=== PATIENT | male | born 1965 | race Caucasian/White ===

== ENCOUNTER 2019-05-25 15:49 | Inpatient (IN) | payer MEDICARE, MEDICAID ==
[2019-05-25] MEDS ORDERED: CIPROFLOXACIN 400 MG/200 ML 200 ML IV ONE (17:26)
[2019-05-25] MEDS ORDERED: metroNIDAZOLE 500 MG/100 ML 500 MG/100 ML BAG IV ONE (17:27)
[2019-05-25] MEDS ORDERED: SODIUM CHLORIDE 0.9% 1,000 ML IV ONE (17:28)
[2019-05-25 17:39] LABS: BASOPHILS # (AUTO) 0.1 10^3/uL (0.0-0.1); BASOPHILS % (AUTO) 0.9 %; EOSINOPHILS # (AUTO) 0.2 10^3/uL (0.0-0.7); EOSINOPHILS % (AUTO) 1.5 %; HGB - HEMOGLOBIN 13.6 g/dL (14.0-18.0); LYMPHOCYTES # (AUTO) 1.3 10^3/uL (1.5-3.5); LYMPHOCYTES % (AUTO) 9.6 %; MEAN CORPUSCULAR HEMOGLOBIN 28.3 pg (27.0-31.0); MEAN CORPUSCULAR HGB CONC 33.7 g/dL (32.0-36.0); MEAN CORPUSCULAR VOLUME 83.8 fL (80.0-94.0); MEAN PLATELET VOLUME 8.2 fL (7.4-11.4); MONOCYTES # (AUTO) 0.8 10^3/uL (0.0-1.0); MONOCYTES % (AUTO) 5.8 %; NEUTROPHILS # (AUTO) 10.9 10^3/uL (1.5-6.6); NEUTROPHILS % (AUTO) 81.4 %; PLT - PLATELET COUNT 426 10^3/uL (130-450); RED BLOOD COUNT 4.81 10^6/uL (4.70-6.10); RED CELL DISTRIBUTION WIDTH 13.2 % (12.0-15.0); WHITE BLOOD COUNT 13.4 x10^3/uL (4.8-10.8)
[2019-05-25 17:50] LABS: BUN - BLOOD UREA NITROGEN 14 mg/dL (6-20); CALCIUM 8.2 mg/dL (8.5-10.3); CARBON DIOXIDE - CO2 24 mmol/L (21-32); CHLORIDE 95 mmol/L (101-111); CREATININE 1.3 mg/dL (0.6-1.2); GLUCOSE 164 mg/dL (70-100); SODIUM 130 mmol/L (135-145)
[2019-05-25 17:52] LABS: KETONES, SERUM (ACETEST) NEGATIVE (NEGATIVE)
--- NOTE | 2019-05-25 17:58 | ED Physician Documentation ---
History of Present Illness - Stated complaint Stated Complaint: LT HEEL PX - Chief complaint Chief Complaint: Wound - History obtained from History obtained from: Patient - Additonal information Additional information: There is a 53-year-old man who is insulin-dependent diabetic who presents with complaints that his left heel has had a wound on it for about 3 weeks and then the skin started falling off this week so he decided he should probably have it looked at. He has neuropathy so he has no pain. He denies any fever or nausea. His blood sugars have been running around 220. He is not short of breath or have chest pain. [place] 4 [place]. 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 Review of Systems Constitutional: denies: Fever Cardiac: denies: Chest pain / pressure Respiratory: denies: Dyspnea GI: denies: Nausea, Vomiting : denies: Dysuria Skin: reports: Lesions, Other (Open wound to the left heel.) Neurologic: reports: Numbness. denies: Syncope PD PAST MEDICAL HISTORY - Past Medical History Past Medical History: Yes Cardiovascular: Hypertension Respiratory: None Neuro: None Endocrine/Autoimmune: Type 2 diabetes GI: None : None HEENT: None Psych: None Musculoskeletal: None Derm: None - Past Surgical History Past Surgical History: Yes HEENT: Other - Present Medications Home Medications: Ambulatory Orders Medication Instructions Recorded Confirmed Amlodipine Besylate 10 mg PO DAILY 11/12/13 09/18/14 Dabigatran [Pradaxa] 75 mg PO BID 11/12/13 09/18/14 Insulin Aspart (Vial) [NovoLOG] 10 unit SQ TID 30 Days ml 11/12/13 09/18/14 Insulin Aspart [NovoLOG] 0 unit SQ TIDWM 11/12/13 09/18/14 Insulin Glargine,Hum.rec.anlog 50 unit SQ BID 30 Days ml 11/12/13 09/18/14 [Lantus] Insulin Glargine,Hum.rec.anlog 50 units BID 11/12/13 09/18/14 [Lantus] Lisinopril 20 mg ORAL BID 11/12/13 09/18/14 Metoprolol Tartrate 100 mg PO DAILY 11/12/13 09/18/14 Pregabalin [Lyrica] 50 mg PO TID 11/12/13 09/18/14 Aspirin [Aspir 81] 81 mg ORAL DAILY 09/18/14 09/18/14 Metformin HCl 1,000 mg PO BID 09/18/14 09/18/14 Omeprazole [Prilosec] 20 mg PO DAILY 09/18/14 09/18/14 Oxycodone HCl/Acetaminophen 1 - 2 each PO Q6H PRN #20 tablet 09/18/14 [Percocet 5-325 mg Tablet] hydroCHLOROthiazide [Hydrodiuril] 25 mg PO ONCE 09/18/14 09/18/14 levoFLOXacin [Levofloxacin] 500 mg PO DAILY 09/18/14 09/18/14 - Allergies Allergies/Adverse Reactions: Allergies Allergy/AdvReac Type Severity Reaction Status Date / Time Penicillins Allergy Itching Verified 05/25/19 16:00 - Social History Does the pt smoke?: Yes Smoking Status: Current every day smoker Does the pt drink ETOH?: No Does the pt have substance abuse?: No - Immunizations Immunizations are current?: Yes - POLST Patient has POLST: No PD ED PE NORMAL - Vitals Vital signs reviewed: Yes - General General: Alert and oriented X 3, No acute distress, Well developed/nourished, Other (Obese) - HEENT HEENT: Atraumatic, PERRL, EOMI, Other (No scleral icterus) - Cardiac Cardiac: RRR, No murmur, Strong equal pulses - Respiratory Respiratory: No respiratory distress, Clear bilaterally - Abdomen Abdomen: Normal bowel sounds, Soft - Extremities Extremities: Other (Patient has a right BKA with prosthesis. His left foot is missing 3 toes along the lateral aspect. He has palpable dorsalis pedis pulse. The skin is quite thick of the lower extremity. There is a black eschar covering the entire heel. There is no evident wound bone at the base of the wound. There is a very foul odor. No active drainage. There is erythema surrounding this entire margin of the wound that measures several centimeters in diameter) - Neuro Neuro: Alert and oriented X 3, No motor deficit, Normal speech - Psych Psych: Normal mood, Normal affect Results - Vitals Vitals: Vital Signs - 24 hr 05/25/19 05/25/19 15:55 18:17 Temperature 36.6 C Heart Rate 109 H 102 H Respiratory 16 18 Rate Blood Pressure 126/106 H 106/94 H O2 Saturation 98 96 Oxygen O2 Source Room air - Labs Labs: Microbiology 05/25/19 17:40 Wound Culture - Preliminary Foot - Left Laboratory Tests 05/25/19 05/25/19 05/25/19 17:20 17:20 17:20 WBC 13.4 H RBC 4.81 Hgb 13.6 L Hct 40.3 L MCV 83.8 MCH 28.3 MCHC 33.7 RDW 13.2 Plt Count 426 MPV 8.2 Neut # (Auto) 10.9 H Lymph # (Auto) 1.3 L [place] # (Auto) 0.8 Eos # (Auto) 0.2 Baso # (Auto) 0.1 Absolute Nucleated RBC 0.00 Nucleated RBC % 0.0 Sodium 130 L Potassium 3.7 Chloride 95 L Carbon Dioxide 24 Anion Gap 11.0 BUN 14 Creatinine 1.3 H Estimated GFR (MDRD) 57 L Glucose 164 H Lactic Acid 0.8 Calcium 8.2 L Serum Ketones NEGATIVE - Rads (name of study) L foot Radiology: EMP read contemporaneously (neg bony involvement), See rad report PD MEDICAL DECISION MAKING - ED course Complexity details: reviewed results, d/w patient ED course: White blood cell count is a little elevated. His BUN and creatinine are normal. Serum ketones were negative. He is allergic to penicillin so he was medicated with Cipro and Flagyl. I spoke with the hospitalist and he requested that I add Vanco tonight as well. Cultures in the blood and cultures of the wound anaerobic and aerobic were obtained. Departure - Departure Disposition: ED Place in Observation Clinical Impression: Diabetic foot ulcer Qualifiers: Diabetic foot ulcer location: heel Diabetes mellitus type: type 1 Laterality: right Non-pressure ulcer stage: with other severity Qualified Code(s): E10.621 - Type 1 diabetes mellitus with foot ulcer; L97.418 - Non-pressure chronic ulcer of right heel and midfoot with other specified severity Condition: Good
--- NOTE | 2019-05-25 18:31 | XRAY Report ---
Reason: diabetic foot ulcer; r/o osteomyelitis Procedure Date: 05/25/2019 Accession Number: [id number] / [id number] Procedure: XR - Foot 3 View LT CPT Code: Final Report FULL RESULT: EXAM: LEFT FOOT RADIOGRAPHY EXAM DATE: 05/25/2019 05:53 PM. CLINICAL HISTORY: Diabetic foot ulcer; r/o osteomyelitis. COMPARISON: None. TECHNIQUE: 3 views. FINDINGS: Bones: There are findings of previous amputation of the fourth and fifth metatarsal diaphysis, first distal phalanx and third proximal phalanx. 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 No other focal cortical bone destruction. Joints: No dislocation. Soft Tissues: Normal. No soft tissue swelling. IMPRESSION: 1. Previous amputations of the first, third, fourth, and fifth digits. 2. 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 3. No other destructive bony abnormality. RADIA
[2019-05-25] MEDS ORDERED: VANCOMYCIN INJ 1 GM in SODIUM CHLORIDE 0.9% 500 ML IV STA (18:54)
[2019-05-25] MEDS ORDERED: SODIUM CHLORIDE 0.9% 1,000 ML IV SCH (19:00)
--- NOTE | 2019-05-25 19:07 | HISTORY & PHYSICAL EXAMINATION ---
Chief Complaint - Chief Complaint Chief Complaint: left diabetic foot ulcer History of Present Illness - Admitted From Admitted From:: [facility] ED - History Obtained From Records Reviewed: yes History obtained from: patient - History of Present Illness HPI Comment/Other: Patient is a 53 y/o morbidly obese male with DM II and significant PVD who pres ented to the ED with a left heel diabetic ulcer which is black, mal-odorous and draining. He reports that skin around it has been sloughing off for the past week and it has been draining for the past couple of days. He has a right BKA and left amputation of metatarsal and 3 toes. He is also an active smoker. He thinks the ulcer started as a result of rubbing of his heel in his shoe. He finally decided to get it looked at because of the smell and drainage. He denied any fever or chills. He denied chest pain, dyspnea, abd pain, nausea or vomiting. In the ED he had a WBC of 13. He was mildly tachycardic at 102. Initially his SBP was 106 but then it became elevated at 196. As a result of the above he was presented for admission He just moved back to [facility] with his parents from [place], [place] History - Past Medical History Cardiovascular: reports: Hypertension, Peripheral Vascular Disease Respiratory: reports: None Neuro: reports: None Endocrine/Autoimmune: reports: Type 2 diabetes GI: reports: GERD : reports: None HEENT: reports: None Psych: reports: None Musculoskeletal: reports: None Derm: reports: None MRSA Hx?: No - Past Surgical History HEENT: reports: Other Other past surgical history: right BKA, Left metatarsal and 3 toes amputated - Family & Social History Family History Comment/Other: Patient denied any significant family history Living arrangement: At home Living Situation: With family Social History Notes: He smokes about 1/4 ppd X 30+ years. He denies alcohol or illicit drug use - POLST Patient has POLST: No POLST Status: Full Code Meds/Allgy - Home Medications Home Medications: Ambulatory Orders Medication Instructions Recorded Confirmed Amlodipine Besylate 10 mg PO DAILY 11/12/13 09/18/14 Dabigatran [Pradaxa] 75 mg PO BID 11/12/13 09/18/14 Insulin Aspart (Vial) [NovoLOG] 10 unit SQ TID 30 Days ml 11/12/13 09/18/14 Insulin Aspart [NovoLOG] 0 unit SQ TIDWM 11/12/13 09/18/14 Insulin Glargine,Hum.rec.anlog 50 unit SQ BID 30 Days ml 11/12/13 09/18/14 [Lantus] Insulin Glargine,Hum.rec.anlog 50 units BID 11/12/13 09/18/14 [Lantus] Lisinopril 20 mg ORAL BID 11/12/13 09/18/14 Metoprolol Tartrate 100 mg PO DAILY 11/12/13 09/18/14 Pregabalin [Lyrica] 50 mg PO TID 11/12/13 09/18/14 Aspirin [Aspir 81] 81 mg ORAL DAILY 09/18/14 09/18/14 Metformin HCl 1,000 mg PO BID 09/18/14 09/18/14 Omeprazole [Prilosec] 20 mg PO DAILY 09/18/14 09/18/14 Oxycodone HCl/Acetaminophen 1 - 2 each PO Q6H PRN #20 tablet 09/18/14 [Percocet 5-325 mg Tablet] hydroCHLOROthiazide [Hydrodiuril] 25 mg PO ONCE 09/18/14 09/18/14 levoFLOXacin [Levofloxacin] 500 mg PO DAILY 09/18/14 09/18/14 - Allergies Allergies/Adverse Reactions: Allergies Allergy/AdvReac Type Severity Reaction Status Date / Time Penicillins Allergy Itching Verified 05/25/19 16:00 Review of Systems - Constitutional Constitutional: denies: Fatigue, Fever, Chills, Weakness - Eyes Eyes: denies: Pain, Blurred vision, Vision loss, Dipolpia - Ears, Nose & Throat Ears, Nose & Throat: denies: Ear pain, Tinnitus, Sore throat - Cardiovascular Cariovascular: denies: Irregular heart rate, Chest pain, Lightheadedness, Syncope, Exertional dyspnea - Respiratory Respiratory: denies: Cough, Sputum production, SOB at rest, SOB with exertion - Gastrointestinal Gastrointestinal: reports: Reflux/heartburn. denies: Abdominal pain, Abdominal distention, Constipation, Diarrhea, Nausea, Vomiting, Coffee grounds emesis - Genitourinary Genitourinary: denies: Dysuria, Frequency, Urgency - Musculoskeletal Musculoskeletal: denies: Muscle pain, Back pain, Gout - Integumentary Integumentary: reports: Lesions (left heel ulcer) - Neurological Neurological: denies: General weakness, Focal weakness, Headache - Psychiatric Psychiatric: denies: Depression, Anxiety - Endocrine Endocrine: denies: Polyuria, Polydypsia - Hematologic/Lymphatic Hematologic/Lymphatic: denies: Anemia, Bruising Prior Level of Functionality: He is independent of activities of daily living Exam - Vital Signs Vital Signs: Vital Signs x48h Temp Pulse Resp BP Pulse Ox 05/25/19 18:17 102 H 18 106/94 H 96 05/25/19 15:55 36.6 C 109 H 16 126/106 H 98 - Physical Exam General Appearance: positive: No acute distress, Alert Eyes Bilateral: positive: PERRL, EOMI ENT: positive: ENT inspection nml, No signs of dehydration Neck: positive: No JVD Respiratory: positive: Chest non-tender, No respiratory distress, Breath sounds nml. negative: Wheezes, Rales, Rhonchi Cardiovascular: positive: No murmur, Tachycardia Abdomen: positive: Non-tender, No organomegaly, Nml bowel sounds, No distention. negative: Guarding, Rebound Back: positive: Nml inspection Skin: positive: Other (left heel ulcer. Black, malodorous and draining) Neurologic/Psychiatric: positive: Oriented x3, Mood/affect nml Conclusion/Plan - Problem List (1) Diabetic foot ulcer Conclusion/Plan: Blood and wound cultures taken Patient started on flagyl and cipro Will continue. 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 Metformin held High dose SSI. Accucheck Check HgA1c Qualifiers: Diabetes mellitus type: type 2 Diabetes mellitus complication detail: with foot ulcer (3) Hypertension Conclusion/Plan: Resume metoprolol and amlodipine. Hold HCTZ and lisinipril for now (4) Diabetic neuropathy Conclusion/Plan: On lyrica (5) GERD (gastroesophageal reflux disease) Conclusion/Plan: Protonix ordered - Lab Results Fish Bones: 05/25/19 17:20 05/25/19 17:20 Core Measures - Anticipated LOS I expect patient to be DC'd or transferred within 96 hours.: Yes - DVT/VTE - Prophylaxis VTE/DVT Device ordered at admit?: Yes VTE/DVT Prophylaxis med ordered at admit?: Yes
[2019-05-25] MEDS ORDERED: VANCOMYCIN PER PHARMACY 100 GM in SODIUM CHLORIDE 0.9% 250 ML IV SCH (20:00)
[2019-05-25] MEDS ORDERED: oxyCODONE 5 MG TABLET PO PRN (20:30)
[2019-05-25] MEDS ORDERED: LABETALOL 5 MG/1 ML 20 ML MDV IVP ONE (20:39)
[2019-05-25] MEDS ORDERED: LABETALOL 5 MG/1 ML 20 ML MDV IVP PRN (20:40)
[2019-05-25 21:19] LABS: HB2 TOTAL 13.3 g/dL; HEMOGLOBIN A1C 1.1 g/dL; HEMOGLOBIN A1C % 9.7 % (4.6-6.2)
[2019-05-25] MEDS: DABIGATRAN 75 MG CAPSULE PO SCH (21:23)
[2019-05-25] MEDS: SODIUM CHLORIDE FLUSH 0.9% 10 ML SYRINGE IVP PRN ×2 (21:24→22:57)
[2019-05-25] MEDS: INSULIN ASPART 300 UNIT/3 ML PEN SUBQ SCH (21:28)
[2019-05-25] MEDS: INSULIN GLARGINE 300 UNIT/3 ML PEN SUBQ SCH (21:29)
[2019-05-25] MEDS ORDERED: hydrALAZINE INJ 20 MG/ML VIAL IVP STA (22:29)
[2019-05-25] MEDS ORDERED: hydrALAZINE INJ 20 MG/ML VIAL ONE (22:47)
[2019-05-26] MEDS ORDERED: hydrALAZINE INJ 20 MG/ML VIAL IVP PRN (00:28)
[2019-05-26] MEDS: SODIUM CHLORIDE FLUSH 0.9% 10 ML SYRINGE IVP SCH ×3 (01:01→16:52)
[2019-05-26] MEDS ORDERED: LABETALOL 5 MG/1 ML 20 ML MDV IVP ONE ×2 (01:59→22:27)
[2019-05-26] MEDS ORDERED: SODIUM CHLORIDE 0.9% 500 ML ONE (02:15)
[2019-05-26] MEDS: SODIUM CHLORIDE FLUSH 0.9% 10 ML SYRINGE IVP PRN (02:20)
[2019-05-26] MEDS ORDERED: metroNIDAZOLE 500 MG/100 ML 500 MG/100 ML BAG IV SCH (02:30)
[2019-05-26 05:10] LABS: BASOPHILS # (AUTO) 0.1 10^3/uL (0.0-0.1); BASOPHILS % (AUTO) 0.9 %; EOSINOPHILS # (AUTO) 0.1 10^3/uL (0.0-0.7); EOSINOPHILS % (AUTO) 0.8 %; HGB - HEMOGLOBIN 12.4 g/dL (14.0-18.0); LYMPHOCYTES % (AUTO) 8.3 %; MEAN CORPUSCULAR HEMOGLOBIN 26.6 pg (27.0-31.0); MEAN CORPUSCULAR HGB CONC 31.9 g/dL (32.0-36.0); MEAN CORPUSCULAR VOLUME 83.5 fL (80.0-94.0); MEAN PLATELET VOLUME 8.3 fL (7.4-11.4); MONOCYTES # (AUTO) 0.8 10^3/uL (0.0-1.0); MONOCYTES % (AUTO) 6.5 %; NEUTROPHILS # (AUTO) 9.6 10^3/uL (1.5-6.6); NEUTROPHILS % (AUTO) 82.9 %; PLT - PLATELET COUNT 388 10^3/uL (130-450); RED BLOOD COUNT 4.66 10^6/uL (4.70-6.10); RED CELL DISTRIBUTION WIDTH 13.2 % (12.0-15.0); WHITE BLOOD COUNT 11.5 x10^3/uL (4.8-10.8)
[2019-05-26 05:13] LABS: CALCIUM 8.2 mg/dL (8.5-10.3); CREATININE 1.2 mg/dL (0.6-1.2)
[2019-05-26] MEDS: PANTOPRAZOLE 40 MG TABLET PO SCH (06:45)
[2019-05-26] MEDS ORDERED: VANCOMYCIN INJ 1.5 GM in SODIUM CHLORIDE 0.9% 500 ML IV SCH (07:00)
[2019-05-26] MEDS ORDERED: CIPROFLOXACIN 400 MG/200 ML 200 ML IV SCH (07:00)
[2019-05-26] MEDS: INSULIN ASPART 300 UNIT/3 ML PEN SUBQ SCH ×4 (08:14→21:10)
[2019-05-26] MEDS: DABIGATRAN 75 MG CAPSULE PO SCH (08:15)
[2019-05-26] MEDS: amLODIPine 5 MG TABLET PO SCH (08:15)
[2019-05-26] MEDS: INSULIN GLARGINE 300 UNIT/3 ML PEN SUBQ SCH ×2 (08:19→21:09)
[2019-05-26] MEDS: SODIUM CHLORIDE 0.9% 1,000 ML IV SCH ×2 (08:59→23:46)
[2019-05-26] MEDS ORDERED: DOXYCYCLINE INJ 100 MG in SODIUM CHLORIDE 0.9% MINIBAG 100 ML IV SCH (09:00)
[2019-05-26] MEDS ORDERED: NITROGLYCERIN 0.2 MG/HR PATCH TOP SCH (09:00)
[2019-05-26] MEDS ORDERED: lisinopriL 20 MG TABLET PO SCH (09:00)
[2019-05-26] MEDS: CEFEPIME 2 GM in SODIUM CHLORIDE 0.9% MINIBAG 100 ML IV SCH ×2 (10:25→21:08)
--- NOTE | 2019-05-26 11:49 | PHARMACY PROGRESS NOTE ---
- Best Possible Medication History Admit Date and Time: 05/26/19 1001 Processed by: Pharmacy Medication History completed: In progress (Patient appears to be poor historian, spoke to mother and reviewed medication list; awaiting fax from patient's outpatient provider in [place]; PCP on file- patient has not seen this provider yet (no history per meidcal assitant at office)) As the person ultimately responsible for medication therapy, providers are able to order a medication from an existing home medication list in [facility] via the "Reconcile Routine" prior to Confirmation of that medication by manager client support. Such practice is discouraged except when the physician, in their clinical judgment, deems that a medical need exists for a medication without regard to previous use.
[2019-05-26] MEDS: carvediloL 12.5 MG TABLET PO SCH ×2 (13:27→20:15)
[2019-05-26] MEDS: hydrALAZINE 25 MG TABLET PO SCH ×2 (13:27→21:08)
--- NOTE | 2019-05-26 13:39 | PROVIDER PROGRESS NOTE ---
Assessment/Plan - Problem List (1) Diabetic foot ulcer Qualifiers: Diabetic foot ulcer location: heel Diabetes mellitus type: type 2 Laterality: right Non-pressure ulcer stage: with other severity Qualified C ode(s): E11.621 - Type 2 diabetes mellitus with foot ulcer; L97.418 - Non- pressure chronic ulcer of right heel and midfoot with other specified severity Assessment/Plan: 05/26 pt has black color, mal-odorous and mild draining ulcer at left heel location. wound culture indicate both Gram negative and positive bacteria, sensitive is pending. pt state he is sensitive to Vancomycin and refused to have. add Linezolid, pt has normal platelet. continue Cefepime which cover for Pseudo. and Linezolid for gram positive possible MRSA. pt is uncontrolled DM2 blood culture is pending MRI of foot is pending. Xray of foot did not indicate bony infection (2) uncontrolled Diabetes pt has A1C 9.7. discussed with pt for medical compliance importance, specially for foot ulcer control continue SSI, hypoglycemia protocol (3) uncontrolled Hypertension improved. it is controlled now. continue current meds regimen (4) Diabetic neuropathy Conclusion/Plan: stable, pt has no complaint now. (5) GERD (gastroesophageal reflux disease) stable. continue Protonic PO (6)diarrhea pt report diarrhea is better. order Probiotics, pt is on antibiotics to treat his foot infection C.Diff test is negative, add Imodine PRN - Current Meds Current Meds: Current Medications Generic Name Dose Route Start Last Admin Trade Name Freq PRN Reason Stop Dose Admin Amlodipine Besylate 10 mg 05/26/19 09:00 05/26/19 08:15 Norvasc PO 10 mg DAILY RADHA Administration Carvedilol 12.5 mg 05/26/19 13:00 05/26/19 13:27 Coreg PO 12.5 mg BID RADHA Administration Dabigatran 75 mg 05/25/19 21:00 05/26/19 08:15 Pradaxa PO 75 mg BID RADHA Administration Hydralazine HCl 10 mg 05/26/19 00:28 05/26/19 10:49 Apresoline Inj IVP 10 mg Q4H PRN Administration PER PHYSICIAN ORDER Hydralazine HCl 50 mg 05/26/19 14:00 05/26/19 13:27 Apresoline PO 50 mg TID RADHA Administration Cefepime HCl 2 gm/ Sodium 100 mls @ 200 mls/hr 05/26/19 09:00 05/26/19 10:55 Chloride IV Infused BID RADHA Infusion Sodium Chloride 1,000 mls @ 83.333 mls/hr 05/26/19 09:00 05/26/19 08:59 Normal Saline 0.9% IV 83.333 mls/hr .Q12H RADHA Administration Insulin Aspart 3 - 11 unit 05/25/19 21:00 05/26/19 13:29 Novolog SUBQ 3 unit 0800,1200,1700,2100 RADHA Administration Protocol Insulin Glargine 50 unit 05/25/19 21:00 05/26/19 08:19 Lantus Solostar SUBQ 50 unit BID RADHA Administration Labetalol HCl 10 mg 05/25/19 20:40 05/26/19 01:01 Trandate Inj IVP 10 mg Q4H PRN Administration PER PHYSICIAN ORDER Lisinopril 20 mg 05/26/19 09:00 05/26/19 09:12 Zestril PO 20 mg BID RADHA Administration Pantoprazole Sodium 40 mg 05/26/19 07:00 05/26/19 06:45 Protonix PO 40 mg QDAC RADHA Administration Sodium Chloride 10 ml 05/25/19 18:56 05/26/19 02:20 Normal Saline Flush 0.9% IVP 10 ml PRN PRN Administration NEEDED PER PROVIDER ORDERS Sodium Chloride 10 ml 05/26/19 01:00 05/26/19 08:28 Normal Saline Flush 0.9% IVP Not Given 0100,0900,1700 RADHA - Lab Result Fish Bone Diagrams: 05/26/19 04:40 05/26/19 04:40 - Additional Planning My Orders: My Active Orders 05/26/19 08:20 Wound Care - MAC [RC] .ONCE 05/26/19 09:00 Cefepime 2 gm Sodium Chloride 0.9% Minibag [Normal Saline 0.9% Minibag] 100 ml IV BID Sodium Chloride 0.9% [Normal Saline 0.9%] 1,000 ml IV 83.333 mls/hr lisinopriL [Zestril] 20 mg PO BID 05/26/19 13:00 carvediloL [Coreg] 12.5 mg PO BID 05/26/19 14:00 Linezolid/D5W 600 mg/300 mL q12h Linezolid 600 mg/300 ml [Zyvox 600 mg/300 ml] 600 mg in 300 ml IV Q12H hydrALAZINE [Apresoline] 50 mg PO TID 05/26/19 17:00 Saccharomyces Boulardii [Florastor] 500 mg PO BIDWM Subjective - Subjective Patient Reports: Feeling Better Objective Vital Signs: Vital Signs - 24 hr 05/25/19 05/25/19 05/25/19 15:55 18:17 20:08 Temperature 36.6 C 37.2 C Heart Rate 109 H 102 H Heart Rate [ 100 Brachial] Heart Rate [ Radial] Respiratory 16 18 24 Rate Blood Pressure 126/106 H 106/94 H Blood Pressure 192/92 H [Left Brachial artery] Blood Pressure [Left Radial artery] Blood Pressure [Right Brachial artery] O2 Saturation 98 96 98 05/25/19 05/25/19 05/25/19 20:39 21:00 21:30 Temperature 37.2 C 37.2 C Heart Rate Heart Rate [ 99 Brachial] Heart Rate [ 97 Radial] Respiratory 22 Rate Blood Pressure Blood Pressure 196/85 H [Left Brachial artery] Blood Pressure 199/95 H [Left Radial artery] Blood Pressure [Right Brachial artery] O2 Saturation 95 05/25/19 05/25/19 05/25/19 21:35 21:39 21:56 Temperature Heart Rate Heart Rate [ 90 90 Brachial] Heart Rate [ 89 Radial] Respiratory Rate Blood Pressure Blood Pressure 184/86 H 170/90 H [Left Brachial artery] Blood Pressure 185/78 H [Left Radial artery] Blood Pressure [Right Brachial artery] O2 Saturation 05/25/19 05/25/19 05/25/19 22:00 22:17 22:55 Temperature Heart Rate Heart Rate [ 90 90 Brachial] Heart Rate [ Radial] Respiratory Rate Blood Pressure 163/66 H Blood Pressure 193/89 H 197/84 H [Left Brachial artery] Blood Pressure [Left Radial artery] Blood Pressure [Right Brachial artery] O2 Saturation 05/25/19 05/25/19 05/25/19 22:58 23:03 23:08 Temperature Heart Rate Heart Rate [ 93 94 95 Brachial] Heart Rate [ Radial] Respiratory Rate Blood Pressure Blood Pressure 163/66 H 130/44 L 155/72 H [Left Brachial artery] Blood Pressure [Left Radial artery] Blood Pressure [Right Brachial artery] O2 Saturation 05/25/19 05/25/19 05/25/19 23:11 23:15 23:45 Temperature Heart Rate Heart Rate [ 95 Brachial] Heart Rate [ Radial] Respiratory Rate Blood Pressure Blood Pressure 161/77 H [Left Brachial artery] Blood Pressure 155/73 H 164/77 H [Left Radial artery] Blood Pressure [Right Brachial artery] O2 Saturation 05/26/19 05/26/19 05/26/19 00:05 00:55 01:05 Temperature 37.0 C Heart Rate Heart Rate [ Brachial] Heart Rate [ 97 98 98 Radial] Respiratory 20 20 Rate Blood Pressure Blood Pressure 172/64 H [Left Brachial artery] Blood Pressure 177/75 H 183/81 H [Left Radial artery] Blood Pressure [Right Brachial artery] O2 Saturation 95 05/26/19 05/26/19 05/26/19 01:16 01:21 01:33 Temperature Heart Rate Heart Rate [ Brachial] Heart Rate [ 98 96 98 Radial] Respiratory 20 Rate Blood Pressure Blood Pressure [Left Brachial artery] Blood Pressure 174/79 H 174/71 H 179/84 H [Left Radial artery] Blood Pressure [Right Brachial artery] O2 Saturation 05/26/19 05/26/19 05/26/19 01:47 02:20 02:25 Temperature Heart Rate Heart Rate [ 100 Brachial] Heart Rate [ 100 102 H Radial] Respiratory Rate Blood Pressure Blood Pressure [Left Brachial artery] Blood Pressure 186/82 H 174/77 H 171/73 H [Left Radial artery] Blood Pressure [Right Brachial artery] O2 Saturation 05/26/19 05/26/19 05/26/19 02:30 02:36 02:48 Temperature Heart Rate Heart Rate [ 98 Brachial] Heart Rate [ 101 H 102 H Radial] Respiratory Rate Blood Pressure Blood Pressure [Left Brachial artery] Blood Pressure 171/74 H 175/74 H 163/79 H [Left Radial artery] Blood Pressure [Right Brachial artery] O2 Saturation 05/26/19 05/26/19 05/26/19 03:03 03:20 04:38 Temperature 37.4 C Heart Rate Heart Rate [ 104 H Brachial] Heart Rate [ Radial] Respiratory 18 Rate Blood Pressure Blood Pressure [Left Brachial artery] Blood Pressure 164/71 H 162/73 H [Left Radial artery] Blood Pressure [Right Brachial artery] O2 Saturation 95 0205/26/19 05/26/19 06:45 08:07 10:36 Temperature 3702 C H Heart Rate Heart Rate [ Brachial] Heart Rate [ 101 H 98 Radial] Respiratory 30 H Rate Blood Pressure Blood Pressure [Left Brachial artery] Blood Pressure 156/72 H 177/83 H 192/88 H [Left Radial artery] Blood Pressure [Right Brachial artery] O2 Saturation 95 05/26/19 05/26/19 05/26/19 10:45 11:00 11:19 Temperature Heart Rate Heart Rate [ Brachial] Heart Rate [ 103 H 102 H Radial] Respiratory Rate Blood Pressure 170/86 H Blood Pressure 163/116 H [Left Brachial artery] Blood Pressure 170/86 H [Left Radial artery] Blood Pressure [Right Brachial artery] O2 Saturation 05/26/19 05/26/19 05/26/19 11:30 11:45 12:00 Temperature 37.6 C H Heart Rate Heart Rate [ Brachial] Heart Rate [ 106 H Radial] Respiratory 22 Rate Blood Pressure Blood Pressure [Left Brachial artery] Blood Pressure 190/89 H [Left Radial artery] Blood Pressure 176/62 H 144/71 H [Right Brachial artery] O2 Saturation 94 05/26/19 12:19 Temperature Heart Rate Heart Rate [ Brachial] Heart Rate [ Radial] Respiratory Rate Blood Pressure Blood Pressure [Left Brachial artery] Blood Pressure [Left Radial artery] Blood Pressure 134/88 H [Right Brachial artery] O2 Saturation Oxygen O2 Source Room air I&O (Last 24 Hrs): Intake and Output Totals x24h 05/24/19 05/25/19 05/26/19 23:59 23:59 23:59 Intake Total 1300 960 Output Total 1275 Balance 1300 -315 General: Alert, Oriented x3, No acute distress HEENT: Atraumatic Neck: Supple Lymphatic: no adenopathy Neuro: Alert, Non Focal, Oriented Times 3 Cardiovascular: Regular rate, Normal S1, Normal S2 Respiratory: Chest non-tender, No respiratory distress, Breath sounds nml Abdomen: Normal bowel sounds, Soft Extremities: No edema - Results Results: Laboratory Results WBC 11.5 x10^3/uL (4.8-10.8) H 05/26/19 04:40 RBC 4.66 10^6/uL (4.70-6.10) L 05/26/19 04:40 Hgb 12.4 g/dL (14.0-18.0) L 05/26/19 04:40 Hct 38.9 % (42.0-52.0) L 05/26/19 04:40 MCV 83.5 fL (80.0-94.0) 05/26/19 04:40 MCH 26.6 pg (27.0-31.0) L 05/26/19 04:40 MCHC 31.9 g/dL (32.0-36.0) L 05/26/19 04:40 RDW 13.2 % (12.0-15.0) 05/26/19 04:40 Plt Count 388 10^3/uL (130-450) 05/26/19 04:40 MPV 8.3 fL (7.4-11.4) 05/26/19 04:40 Neut # (Auto) 9.6 10^3/uL (1.5-6.6) H 05/26/19 04:40 Lymph # (Auto) 1.0 10^3/uL (1.5-3.5) L 05/26/19 04:40 [place] # (Auto) 0.8 10^3/uL (0.0-1.0) 05/26/19 04:40 Eos # (Auto) 0.1 10^3/uL (0.0-0.7) 05/26/19 04:40 Baso # (Auto) 0.1 10^3/uL (0.0-0.1) 05/26/19 04:40 Absolute Nucleated RBC 0.00 x10^3/uL 05/26/19 04:40 Nucleated RBC % 0.0 /100WBC 05/26/19 04:40 Sodium 133 mmol/L (135-145) L 05/26/19 04:40 Potassium 3.5 mmol/L (3.5-5.0) 05/26/19 04:40 Chloride 101 mmol/L (101-111) 05/26/19 04:40 Carbon Dioxide 22 mmol/L (21-32) 05/26/19 04:40 Anion Gap 10.0 (6-13) 05/26/19 04:40 BUN 14 mg/dL (6-20) 05/26/19 04:40 Creatinine 1.2 mg/dL (0.6-1.2) 05/26/19 04:40 Estimated GFR (MDRD) 63 (>89) L 05/26/19 04:40 Glucose 185 mg/dL (70-100) H 05/26/19 04:40 POC Whole Bld Glucose 153 mg/dL (70 - 100) H 05/26/19 11:25 Glycated Hemoglobin 9.7 % (4.6-6.2) H 05/25/19 17:20 Estim Average Glucose 232 (70-100) H 05/25/19 17:20 Lactic Acid 0.8 mmol/L (0.5-2.2) 05/25/19 17:20 Calcium 8.2 mg/dL (8.5-10.3) L 05/26/19 04:40 Stl C. diff Tox B Gene NEGATIVE (NEGATIVE) 05/26/19 08:20 Serum Ketones NEGATIVE (NEGATIVE) 05/25/19 17:20 ABX Reporting Has patient been on IV antibiotics over the past 48 hours?: Yes Current Medications - Current Medications Current Medications: Active Medications Acetaminophen (Tylenol) 650 mg PO Q6HR PRN PRN Reason: Pain or Fever > 38C (100.4F) Amlodipine Besylate (Norvasc) 10 mg PO DAILY [facility] Last Admin: 05/26/19 08:15 Dose: 10 mg Aspirin (Ecotrin) 81 mg PO DAILY [facility] Carvedilol (Coreg) 12.5 mg PO BID [facility] Last Admin: 05/26/19 13:27 Dose: 12.5 mg Enoxaparin Sodium (Lovenox) 40 mg SUBQ DAILY [facility] Hydralazine HCl (Apresoline Inj) 10 mg IVP Q4H PRN PRN Reason: PER PHYSICIAN ORDER Last Admin: 05/26/19 10:49 Dose: 10 mg Hydralazine HCl (Apresoline) 50 mg PO TID [facility] Last Admin: 05/26/19 13:27 Dose: 50 mg Cefepime HCl 2 gm/ Sodium (Chloride) 100 mls @ 200 mls/hr IV BID [facility] Last Infusion: 05/26/19 10:55 Dose: Infused Sodium Chloride (Normal Saline 0.9%) 1,000 mls @ 83.333 mls/hr IV .Q12H [facility] Last Admin: 05/26/19 08:59 Dose: 83.333 mls/hr Linezolid (Zyvox 600 Mg/300 Ml) 600 mg in 300 mls @ 300 mls/hr IV Q12H [facility] Insulin Aspart (Novolog) 3 - 11 unit SUBQ 0800,1200,1700,2100 [facility]; Protocol Last Admin: 05/26/19 13:29 Dose: 3 unit Insulin Glargine (Lantus Solostar) 50 unit SUBQ BID [facility] Last Admin: 05/26/19 08:19 Dose: 50 unit Labetalol HCl (Trandate Inj) 10 mg IVP Q4H PRN PRN Reason: PER PHYSICIAN ORDER Last Admin: 05/26/19 01:01 Dose: 10 mg Lisinopril (Zestril) 20 mg PO BID [facility] Last Admin: 05/26/19 09:12 Dose: 20 mg Loperamide HCl (Imodium) 2 mg PO QID PRN PRN Reason: Diarrhea Oxycodone HCl (Roxicodone) 5 mg PO Q4HR PRN PRN Reason: PAIN Pantoprazole Sodium (Protonix) 40 mg PO QDAC [facility] Last Admin: 05/26/19 06:45 Dose: 40 mg Saccharomyces Boulardii (Florastor) 500 mg PO BIDWM [facility] Sodium Chloride (Normal Saline Flush 0.9%) 10 ml IVP PRN PRN PRN Reason: NEEDED PER PROVIDER ORDERS Last Admin: 05/26/19 02:20 Dose: 10 ml Sodium Chloride (Normal Saline Flush 0.9%) 10 ml IVP 0100,0900,1700 [facility] Last Admin: 05/26/19 08:28 Dose: Not Given Amlodipine Besylate 10 mg PO DAILY 11/12/13 Insulin Aspart [NovoLOG] 0 unit SQ TIDWM 11/12/13 Insulin Glargine,Hum.rec.anlog [Lantus] 50 units BID 11/12/13 Lisinopril 20 mg ORAL BID 11/12/13 Aspirin [Aspir 81] 81 mg ORAL DAILY 09/18/14 hydroCHLOROthiazide [Hydrodiuril] 25 mg PO DAILY 09/18/14 levoFLOXacin [Levofloxacin] 500 mg PO DAILY 09/18/14 Carvedilol 12.5 mg PO BID 05/26/19 Hydralazine HCl 50 mg PO TID 05/26/19
[2019-05-26] MEDS ORDERED: LOPERAMIDE 2 MG CAPSULE PO PRN (14:01)
[2019-05-26] MEDS: LINEZOLID 600 MG/300 ML 600 MG/300 ML BAG IV SCH (14:47)
[2019-05-26] MEDS ORDERED: GADOBUTROL 15 MMOL/15 ML VIAL ONE (15:32)
[2019-05-26] MEDS ORDERED: GADOBUTROL 15 MMOL/15 ML VIAL IVP ONE (16:12)
[2019-05-26] MEDS: SACCHAROMYCES BOULARDII 250 MG CAPSULE PO SCH (16:50)
[2019-05-26] MEDS: ACETAMINOPHEN 325 MG TABLET PO PRN ×2 (16:52→22:15)
--- NOTE | 2019-05-26 17:19 | MRI Report ---
Reason: diabetic foot ulcer. Assess for osteo Procedure Date: 05/26/2019 Accession Number: [id number] / [id number] Procedure: MRI - Foot LT W/WO CPT Code: Final Report FULL RESULT: EXAM: LEFT ANKLE/HINDFOOT MRI WITHOUT AND WITH CONTRAST EXAM DATE: 05/26/2019 04:59 PM. CLINICAL HISTORY: Diabetic foot ulcer. Assess for osteomyelitis. COMPARISON: FOOT 3 VIEW LT 05/25/2019 5:53 PM. TECHNIQUE: Multiplanar, multisequence T1-weighted and fluid-sensitive sequences of the ankle before and after administration of intravenous contrast. IV contrast: 14 mL Gadavist given IV, no reaction. Other: None. FINDINGS: Bones: The posterior half of the calcaneus shows low signal on T1, high signal on T2 and abnormal contrast enhancement. This portion of the calcaneus is immediately deep to a large ulceration and region of tissue loss involving the skin and subcutaneous soft tissues over the posterior ankle. This defect is about 5.4 x 5.6 cm transversely. There is also some subchondral cystic changes and arthritic changes at the first TMT joint. Series 120 on image 16 for example. This is more degenerative in appearance. Articular Cartilage: Unremarkable. Ligaments: The anterior and posterior tibiofibular, anterior and posterior talofibular, and calcaneofibular ligaments are intact.The deep and superficial deltoid and spring ligaments are intact. Anterior Tendons: The tibialis anterior, extensor hallucis longus, and extensor digitorum longus tendons are unremarkable. Medial Tendons: The tibialis posterior, flexor digitorum longus, and flexor hallucis longus tendons are unremarkable. Lateral Tendons: The peroneus brevis and longus are unremarkable. Achilles Tendon: Achilles tendon is somewhat thickened but intact. Musculature: Some fatty atrophy of the intrinsic muscles of the foot. With contrast there was also low level enhancement present. Other: No effusions or synovitis. The contents of the sinus tarsi and tarsal tunnel are unremarkable.No plantar fasciitis. Subcutaneous edema and swelling is seen around the foot. IMPRESSION: 1. The dominant feature of this examination is a broad region of osteomyelitis involving the calcaneus which is deep to a fairly large ulceration over the posterior aspect of the heel. No drainable fluid collections or abscesses. 2. Some surrounding cellulitis/edema also seen in the subcutaneous soft tissues of the hindfoot. Edema and low level enhancement is seen in the intrinsic musculature of the midfoot and hindfoot, moderate myositis also is present. RADIA
[2019-05-26] MEDS ORDERED: traZODone 50 MG TABLET PO PRN (18:20)
[2019-05-26] MEDS: CLINDAMYCIN 900 MG/50 ML 50 ML IV SCH (18:45)
[2019-05-26] MEDS: LOPERAMIDE 2 MG CAPSULE PO SCH (20:15)
[2019-05-26] MEDS: FERROUS SULFATE 325 MG TABLET PO SCH (21:08)
[2019-05-26] MEDS ORDERED: IOVERSOL 320 100 ML VIAL IVP ONE (23:29)
[2019-05-27] MEDS: SODIUM CHLORIDE FLUSH 0.9% 10 ML SYRINGE IVP SCH ×3 (01:12→16:56)
[2019-05-27] MEDS ORDERED: IOVERSOL 320 100 ML VIAL IVP ONE (01:52)
--- NOTE | 2019-05-27 02:28 | CT Report ---
Reason: dyspnea, tachycardia Procedure Date: 05/27/2019 Accession Number: [id number] / [id number] Procedure: CT - ANGIO CHEST W/WO CPT Code: Final Report FULL RESULT: EXAM: CT ANGIOGRAM CHEST EXAM DATE: 05/27/2019 01:54 AM. CLINICAL HISTORY: Dyspnea, tachycardia. COMPARISON: None. TECHNIQUE: Routine helical imaging was performed through the chest in the pulmonary arterial phase. IV Contrast: OPTIRAY 320. Reconstructions: Coronal 3-D MIP reconstructions. Sagittal and coronal. In accordance with CT protocol optimization, one or more of the following dose reduction techniques were utilized for this exam: automated exposure control, adjustment of mA and/or KV based on patient size, or use of iterative reconstructive technique. FINDINGS: Pulmonary Arteries: Diagnostic quality: Suboptimal through the segmental arteries due to motion artifact. No evidence for acute or chronic pulmonary emboli. Lungs/Pleura: Possible pulmonary vascular congestion versus hypoventilatory changes. No jonh alveolar consolidation seen. No pleural effusion. No pneumothorax. Mediastinum: Heart size upper normal. Thoracic Aorta: Unremarkable. Upper Abdomen: Hepatomegaly with possible fatty liver. Mild splenomegaly. Right renal cyst measuring 2.5 cm. Other: None. IMPRESSION: 1. No pulmonary emboli seen. Images are somewhat degraded due to motion artifact. 2. Possible pulmonary vascular congestion versus atelectatic changes. 3. Heart size upper normal. 4. Hepatosplenomegaly with possible fatty liver. RADIA
[2019-05-27] MEDS: LINEZOLID 600 MG/300 ML 600 MG/300 ML BAG IV SCH (02:29)
[2019-05-27] MEDS: CLINDAMYCIN 900 MG/50 ML 50 ML IV SCH ×2 (02:29→14:48)
[2019-05-27] MEDS ORDERED: SODIUM CHLORIDE 0.9% 500 ML ONE (02:40)
[2019-05-27 03:08] LABS: BASOPHILS # (AUTO) 0.1 10^3/uL (0.0-0.1); BASOPHILS % (AUTO) 0.7 %; EOSINOPHILS % (AUTO) 0.1 %; HGB - HEMOGLOBIN 11.3 g/dL (14.0-18.0); LYMPHOCYTES # (AUTO) 0.5 10^3/uL (1.5-3.5); LYMPHOCYTES % (AUTO) 3.6 %; MEAN CORPUSCULAR HEMOGLOBIN 27.6 pg (27.0-31.0); MEAN CORPUSCULAR HGB CONC 32.9 g/dL (32.0-36.0); MEAN CORPUSCULAR VOLUME 83.7 fL (80.0-94.0); MEAN PLATELET VOLUME 8.3 fL (7.4-11.4); MONOCYTES # (AUTO) 0.5 10^3/uL (0.0-1.0); MONOCYTES % (AUTO) 3.1 %; NEUTROPHILS # (AUTO) 13.7 10^3/uL (1.5-6.6); NEUTROPHILS % (AUTO) 91.6 %; PLT - PLATELET COUNT 296 10^3/uL (130-450); RED CELL DISTRIBUTION WIDTH 13.2 % (12.0-15.0)
[2019-05-27 03:17] LABS: CREATININE 1.4 mg/dL (0.6-1.2)
[2019-05-27] MEDS ORDERED: LEVOTHYROXINE 112 MCG TABLET PO SCH (07:00)
[2019-05-27] MEDS ORDERED: LEVOTHYROXINE 25 MCG TABLET PO SCH (07:00)
[2019-05-27] MEDS: PANTOPRAZOLE 40 MG TABLET PO SCH (07:08)
[2019-05-27] MEDS: hydrALAZINE 25 MG TABLET PO SCH ×2 (07:08→14:48)
[2019-05-27] MEDS: FERROUS SULFATE 325 MG TABLET PO SCH (07:09)
[2019-05-27] MEDS: INSULIN ASPART 300 UNIT/3 ML PEN SUBQ SCH ×3 (07:48→16:56)
[2019-05-27] MEDS ORDERED: ASPIRIN 325 MG TABLET PO SCH (07:49)
--- NOTE | 2019-05-27 08:24 | XRAY Report ---
Reason: SOB Procedure Date: 05/27/2019 Accession Number: [id number] / [id number] Procedure: XR - Chest 1 View X-Ray CPT Code: 28768 Final Report FULL RESULT: EXAM: CHEST RADIOGRAPHY EXAM DATE: 05/27/2019 08:12 AM. CLINICAL HISTORY: Shortness of breath COMPARISON: CHEST ANGIO 05/27/2019 1:36 AM. TECHNIQUE: 1 view. FINDINGS: Lungs/Pleura: No focal opacities are evident. No pleural effusion or pneumothorax. Mediastinum: Within exam limitations, the cardiomediastinal contour is normal. Other: The bones are unremarkable. IMPRESSION: No acute cardiopulmonary abnormality. [facility]
[2019-05-27] MEDS: SACCHAROMYCES BOULARDII 250 MG CAPSULE PO SCH ×2 (08:51→16:55)
[2019-05-27] MEDS: LOPERAMIDE 2 MG CAPSULE PO SCH (08:51)
[2019-05-27] MEDS: carvediloL 12.5 MG TABLET PO SCH (08:52)
[2019-05-27] MEDS: amLODIPine 5 MG TABLET PO SCH (08:52)
[2019-05-27] MEDS: CEFEPIME 2 GM in SODIUM CHLORIDE 0.9% MINIBAG 100 ML IV SCH (08:53)
[2019-05-27] MEDS: SODIUM CHLORIDE 0.9% 1,000 ML IV SCH (08:54)
[2019-05-27] MEDS ORDERED: ENOXAPARIN 40 MG/0.4 ML SYRINGE SUBQ SCH (09:00)
[2019-05-27] MEDS ORDERED: MULTIVITAMIN TABLET PO SCH (09:00)
[2019-05-27] MEDS ORDERED: ASPIRIN EC 81 MG TABLET PO SCH (09:00)
[2019-05-27] MEDS ORDERED: LOSARTAN 50 MG TABLET PO SCH (09:00)
[2019-05-27] MEDS ORDERED: NON FORMULARY MED (Levothyroxine Sodium [Levothyroxine Sodium] 137 MCG) PO SCH (09:00)
[2019-05-27] MEDS ORDERED: FOLIC ACID 0.4 MG PO SCH (09:00)
[2019-05-27] MEDS: INSULIN GLARGINE 300 UNIT/3 ML PEN SUBQ SCH (09:18)
--- NOTE | 2019-05-27 09:23 | PROVIDER PROGRESS NOTE ---
Subjective - Prog Note Date Prog Note Date: 05/27/19 - Subjective Pt reports feeling: Improved Subjective: pt denies chest pain, fever, chill, SOB. Nurse report he has some nausea at this morning. In the last night, per night physician report he had difficult for breath. Also on last night, pt has lower degree of fever, and blood culture was done for pt. pt has elevated troponin at 80, then next troponin at 100 at early this morning, now the new Troponin is over 2400. EKG is done at this morning which reveals no ST variation. but pt complain of nausea at this morning, and difficult to breath on last night. CTA did not reveals PE or infiltrate. Pt likely had acute NSTEM CO on last night. After discussed with Dr. Faby Phillips, publication designer, we start heparin drip for pt now. We start Lipitor, order ECHO. pt already has Coreg. we will continue to control her BP, continue serial Troponin level, continue Tele, vital monitor closely, continue antibiotics for his foot ulcer infection. we will hold pt's transfer to other high level of care. pt had osteomylitis infection on his left foot and pt want to have surgery intervention. Unfortunately we did not have orthopedics surgeon now. Current Medications - Current Medications Current Medications: Active Medications Acetaminophen (Tylenol) 650 mg PO Q6HR PRN PRN Reason: Pain or Fever > 38C (100.4F) Last Admin: 05/26/19 22:15 Dose: 650 mg Amlodipine Besylate (Norvasc) 10 mg PO DAILY [facility] Last Admin: 05/27/19 08:52 Dose: 10 mg Aspirin (Ecotrin) 81 mg PO DAILY [facility] Last Admin: 05/27/19 08:35 Dose: Not Given Atorvastatin Calcium (Lipitor) 80 mg PO QPM [facility] Last Admin: 05/27/19 10:11 Dose: 80 mg Carvedilol (Coreg) 12.5 mg PO BID [facility] Last Admin: 05/27/19 08:52 Dose: 12.5 mg Ferrous Sulfate (Feosol) 325 mg PO BIDWM [facility] Heparin Sodium (Porcine) () 3,850 unit 25 unit/kg (3850 unit) IVP Q6H PRN PRN Reason: ANTI-XA < 0.2 Hydralazine HCl (Apresoline Inj) 10 mg IVP Q4H PRN PRN Reason: PER PHYSICIAN ORDER Last Admin: 05/26/19 10:49 Dose: 10 mg Hydralazine HCl (Apresoline) 50 mg PO TID [facility] Last Admin: 05/27/19 07:08 Dose: 50 mg Cefepime HCl 2 gm/ Sodium (Chloride) 100 mls @ 200 mls/hr IV BID [facility] Last Infusion: 05/27/19 09:23 Dose: Infused Sodium Chloride (Normal Saline 0.9%) 1,000 mls @ 83.333 mls/hr IV .Q12H [facility] Last Admin: 05/27/19 08:54 Dose: 83.333 mls/hr Clindamycin Phosphate (Cleocin 900 Mg/50 Ml) 50 mls @ 50 mls/hr IV Q8H [facility] Last Infusion: 05/27/19 04:00 Dose: Infused Heparin Sodium/Dextrose () 25,000 unit in 500 mls @ 36.84 mls/hr IV .[id number] [facility]; Protocol Last Admin: 05/27/19 10:11 Dose: 12 unit/kg/hr, 36.84 mls/hr Linezolid (Zyvox 600 Mg/300 Ml) 600 mg in 300 mls @ 300 mls/hr IV BID [facility] Insulin Aspart (Novolog) 3 - 11 unit SUBQ 0800,1200,1700,2100 [facility]; Protocol Last Admin: 05/27/19 07:48 Dose: Not Given Insulin Glargine (Lantus Solostar) 50 unit SUBQ BID [facility] Last Admin: 05/27/19 09:18 Dose: 50 unit Labetalol HCl (Trandate Inj) 10 mg IVP Q4H PRN PRN Reason: PER PHYSICIAN ORDER Last Admin: 05/26/19 01:01 Dose: 10 mg Levothyroxine Sodium (Synthroid) 112 mcg PO QDAC [facility] Last Admin: 05/27/19 07:10 Dose: 112 mcg Levothyroxine Sodium (Synthroid) 25 mcg PO QDAC [facility] Last Admin: 05/27/19 07:07 Dose: 25 mcg Loperamide HCl (Imodium) 4 mg PO BID [facility] Last Admin: 05/27/19 08:51 Dose: 4 mg Losartan Potassium (Cozaar) 50 mg PO DAILY [facility] Last Admin: 05/27/19 08:52 Dose: 50 mg Multivitamins (Theragran) 1 tab PO DAILY [facility] Last Admin: 05/27/19 08:52 Dose: 1 tab Oxycodone HCl (Roxicodone) 5 mg PO Q4HR PRN PRN Reason: PAIN Pantoprazole Sodium (Protonix) 40 mg PO QDAC [facility] Last Admin: 05/27/19 07:08 Dose: 40 mg Patient Own Med ( Folic Acid [Folic Acid] 0.4 Mg) 1 each PO DAILY [facility] Last Admin: 05/27/19 08:53 Dose: Not Given Saccharomyces Boulardii (Florastor) 500 mg PO BIDWM [facility] Last Admin: 05/27/19 08:51 Dose: 500 mg Sodium Chloride (Normal Saline Flush 0.9%) 10 ml IVP PRN PRN PRN Reason: NEEDED PER PROVIDER ORDERS Last Admin: 05/26/19 02:20 Dose: 10 ml Sodium Chloride (Normal Saline Flush 0.9%) 10 ml IVP 0100,0900,1700 [facility] Last Admin: 05/27/19 08:54 Dose: 10 ml Trazodone HCl (Desyrel) 50 mg PO QPM PRN PRN Reason: Insomnia Last Admin: 05/26/19 21:08 Dose: 50 mg Amlodipine Besylate 10 mg PO DAILY 11/12/13 Aspirin [Aspir 81] 81 mg ORAL DAILY 09/18/14 hydroCHLOROthiazide [Hydrodiuril] 25 mg PO DAILY 09/18/14 Carvedilol 12.5 mg PO BID 05/26/19 Ferrous Sulfate 325 mg PO TID 05/26/19 Folic Acid 0.4 mg PO DAILY 05/26/19 Hydralazine HCl 100 mg PO TID 05/26/19 Insulin Regular, Human [Humulin R U-500] 100 units SUBQ BID 05/26/19 Levothyroxine Sodium 137 mcg PO DAILY 05/26/19 Loperamide [Imodium] 4 mg PO BID 05/26/19 Losartan [Cozaar] 50 mg PO DAILY 05/26/19 Multivitamin [Theragran] 1 tab PO DAILY 05/26/19 Trazodone HCl 50 mg PO QPM PRN 05/26/19 cloNIDine 0.1 MG PATCH [[id number]-Amr-2] 0.1 mg TOP Q7D 05/26/19 Objective - Vital Signs/Intake & Output Vital Signs: Vital Signs x48h Temp Pulse Pulse Resp BP BP Pulse Ox 05/27/19 08:03 36.9 C 86 18 127/59 L 95 05/27/19 05:00 36.8 C 85 18 122/73 95 05/27/19 02:17 37.3 C 82 20 132/64 H 92 Intake & Output: Intake & Output 05/24/19 05/25/19 05/26/19 05/27/19 23:59 23:59 23:59 23:59 Intake Total 1300 2500.000 1340.000 Output Total 1770 100 Balance 1300 678.960 4617.000 - Objective General Appearance: positive: No acute distress, Alert. negative: Lethargic Eyes Bilateral: positive: Normal inspection, PERRL, EOMI, No lid inflammation ENT: positive: ENT inspection nml, Pharynx nml, No signs of dehydration. negative: Purulent nasal drainage Neck: positive: Nml inspection, Thyroid nml, No JVD, Trachea midline. negative: Thyromegaly, Lymphadenopathy (R), Lymphadenopathy (L), Stiff neck, Tracheal deviation Respiratory: positive: Chest non-tender, No respiratory distress. negative: Wheezes, Rales, Rhonchi Cardiovascular: positive: Regular rate & rhythm, No murmur, No gallop. negative: Irregularly irregular, Extrasystoles, Tachycardia, Bradycardia, JVD present, Systolic murmur, Diastolic murmur Peripheral Pulses: 2+ Radial (R), 2+ Radial (L) Abdomen: positive: Non-tender, No organomegaly, Nml bowel sounds, No distention. negative: Tenderness, Guarding, Rebound Back: positive: Nml inspection. negative: CVA tenderness (R), CVA tenderness (L) Skin: positive: Color nml, No rash, Warm, Dry, Laceration (cm). negative: Cyanosis, Diaphoresis, Pallor Extremities: negative: Calf tenderness, Martin's sign/cords Neurologic/Psychiatric: positive: Oriented x3, Motor nml, Mood/affect nml. negative: Weakness, Sensory loss, Facial droop, Slurred/abnml speech, Depressed mood/affect - Lab Results Fish Bones: 05/27/19 09:27 05/27/19 02:55 Other Labs: Lab Results x24hrs 05/27/19 05/27/19 05/27/19 Range/Units 08:28 07:38 02:55 WBC (4.8-10.8) x10^3/uL RBC (4.70-6.10) 10^6/uL Hgb (14.0-18.0) g/dL Hct (42.0-52.0) % MCV (80.0-94.0) fL MCH (27.0-31.0) pg MCHC (32.0-36.0) g/dL RDW (12.0-15.0) % Plt Count (130-450) 10^3/uL MPV (7.4-11.4) fL Neut # (Auto) (1.5-6.6) 10^3/uL Lymph # (Auto) (1.5-3.5) 10^3/uL Ware # (Auto) (0.0-1.0) 10^3/uL Eos # (Auto) (0.0-0.7) 10^3/uL Baso # (Auto) (0.0-0.1) 10^3/uL Absolute Nucleated RBC x10^3/uL Nucleated RBC % /100WBC Sodium (135-145) mmol/L Potassium (3.5-5.0) mmol/L Chloride (101-111) mmol/L Carbon Dioxide (21-32) mmol/L Anion Gap (6-13) BUN (6-20) mg/dL Creatinine (0.6-1.2) mg/dL Estimated GFR (MDRD) (>89) Glucose (70-100) mg/dL POC Whole Bld Glucose 121 H (70 - 100) mg/dL Calcium (8.5-10.3) mg/dL Troponin I High Sens 2448.5 H* 99.7 H* (2.3-19.7) ng/L B-Natriuretic Peptide (5-100) pg/mL TSH (0.34-5.60) uIU/mL Nasal Screen MRSA (PCR) (NEGATIVE) Stl C. diff Tox B Gene (NEGATIVE) 05/27/19 05/27/19 05/27/19 Range/Units 02:55 02:55 02:55 WBC 15.0 H (4.8-10.8) x10^3/uL RBC 4.10 L (4.70-6.10) 10^6/uL Hgb 11.3 L (14.0-18.0) g/dL Hct 34.3 L (42.0-52.0) % MCV 83.7 (80.0-94.0) fL MCH 27.6 (27.0-31.0) pg MCHC 32.9 (32.0-36.0) g/dL RDW 13.2 (12.0-15.0) % Plt Count 296 (130-450) 10^3/uL MPV 8.3 (7.4-11.4) fL Neut # (Auto) 13.7 H (1.5-6.6) 10^3/uL Lymph # (Auto) 0.5 L (1.5-3.5) 10^3/uL Ware # (Auto) 0.5 (0.0-1.0) 10^3/uL Eos # (Auto) 0.0 (0.0-0.7) 10^3/uL Baso # (Auto) 0.1 (0.0-0.1) 10^3/uL Absolute Nucleated RBC 0.00 x10^3/uL Nucleated RBC % 0.0 /100WBC Sodium 132 L (135-145) mmol/L Potassium 3.6 (3.5-5.0) mmol/L Chloride 99 L (101-111) mmol/L Carbon Dioxide 22 (21-32) mmol/L Anion Gap 11.0 (6-13) BUN 15 (6-20) mg/dL Creatinine 1.4 H (0.6-1.2) mg/dL Estimated GFR (MDRD) 53 L (>89) Glucose 149 H (70-100) mg/dL POC Whole Bld Glucose (70 - 100) mg/dL Calcium 8.0 L (8.5-10.3) mg/dL Troponin I High Sens (2.3-19.7) ng/L B-Natriuretic Peptide (5-100) pg/mL TSH 2.72 (0.34-5.60) uIU/mL Nasal Screen MRSA (PCR) (NEGATIVE) Stl C. diff Tox B Gene (NEGATIVE) 05/26/19 05/26/19 05/26/19 Range/Units 22:47 22:47 22:20 WBC (4.8-10.8) x10^3/uL RBC (4.70-6.10) 10^6/uL Hgb (14.0-18.0) g/dL Hct (42.0-52.0) % MCV (80.0-94.0) fL MCH (27.0-31.0) pg MCHC (32.0-36.0) g/dL RDW (12.0-15.0) % Plt Count (130-450) 10^3/uL MPV (7.4-11.4) fL Neut # (Auto) (1.5-6.6) 10^3/uL Lymph # (Auto) (1.5-3.5) 10^3/uL Ware # (Auto) (0.0-1.0) 10^3/uL Eos # (Auto) (0.0-0.7) 10^3/uL Baso # (Auto) (0.0-0.1) 10^3/uL Absolute Nucleated RBC x10^3/uL Nucleated RBC % /100WBC Sodium (135-145) mmol/L Potassium (3.5-5.0) mmol/L Chloride (101-111) mmol/L Carbon Dioxide (21-32) mmol/L Anion Gap (6-13) BUN (6-20) mg/dL Creatinine (0.6-1.2) mg/dL Estimated GFR (MDRD) (>89) Glucose (70-100) mg/dL POC Whole Bld Glucose 98 (70 - 100) mg/dL Calcium (8.5-10.3) mg/dL Troponin I High Sens 80.4 H* (2.3-19.7) ng/L B-Natriuretic Peptide 113 H (5-100) pg/mL TSH (0.34-5.60) uIU/mL Nasal Screen MRSA (PCR) (NEGATIVE) Stl C. diff Tox B Gene (NEGATIVE) 05/26/19 05/26/19 05/26/19 Range/Units 20:39 19:45 16:39 WBC (4.8-10.8) x10^3/uL RBC (4.70-6.10) 10^6/uL Hgb (14.0-18.0) g/dL Hct (42.0-52.0) % MCV (80.0-94.0) fL MCH (27.0-31.0) pg MCHC (32.0-36.0) g/dL RDW (12.0-15.0) % Plt Count (130-450) 10^3/uL MPV (7.4-11.4) fL Neut # (Auto) (1.5-6.6) 10^3/uL Lymph # (Auto) (1.5-3.5) 10^3/uL Ware # (Auto) (0.0-1.0) 10^3/uL Eos # (Auto) (0.0-0.7) 10^3/uL Baso # (Auto) (0.0-0.1) 10^3/uL Absolute Nucleated RBC x10^3/uL Nucleated RBC % /100WBC Sodium (135-145) mmol/L Potassium (3.5-5.0) mmol/L Chloride (101-111) mmol/L Carbon Dioxide (21-32) mmol/L Anion Gap (6-13) BUN (6-20) mg/dL Creatinine (0.6-1.2) mg/dL Estimated GFR (MDRD) (>89) Glucose (70-100) mg/dL POC Whole Bld Glucose 161 H 115 H (70 - 100) mg/dL Calcium (8.5-10.3) mg/dL Troponin I High Sens (2.3-19.7) ng/L B-Natriuretic Peptide (5-100) pg/mL TSH (0.34-5.60) uIU/mL Nasal Screen MRSA (PCR) POSITIVE A* (NEGATIVE) Stl C. diff Tox B Gene (NEGATIVE) 05/26/19 05/26/19 Range/Units 11:25 08:20 WBC (4.8-10.8) x10^3/uL RBC (4.70-6.10) 10^6/uL Hgb (14.0-18.0) g/dL Hct (42.0-52.0) % MCV (80.0-94.0) fL MCH (27.0-31.0) pg MCHC (32.0-36.0) g/dL RDW (12.0-15.0) % Plt Count (130-450) 10^3/uL MPV (7.4-11.4) fL Neut # (Auto) (1.5-6.6) 10^3/uL Lymph # (Auto) (1.5-3.5) 10^3/uL Ware # (Auto) (0.0-1.0) 10^3/uL Eos # (Auto) (0.0-0.7) 10^3/uL Baso # (Auto) (0.0-0.1) 10^3/uL Absolute Nucleated RBC x10^3/uL Nucleated RBC % /100WBC Sodium (135-145) mmol/L Potassium (3.5-5.0) mmol/L Chloride (101-111) mmol/L Carbon Dioxide (21-32) mmol/L Anion Gap (6-13) BUN (6-20) mg/dL Creatinine (0.6-1.2) mg/dL Estimated GFR (MDRD) (>89) Glucose (70-100) mg/dL POC Whole Bld Glucose 153 H (70 - 100) mg/dL Calcium (8.5-10.3) mg/dL Troponin I High Sens (2.3-19.7) ng/L B-Natriuretic Peptide (5-100) pg/mL TSH (0.34-5.60) uIU/mL Nasal Screen MRSA (PCR) (NEGATIVE) Stl C. diff Tox B Gene NEGATIVE (NEGATIVE) ABX Reporting Has patient been on IV antibiotics over the past 48 hours?: Yes Assessment/Plan - Problem List (1) NSTEMI (non-ST elevated myocardial infarction) Impression: 05/27 per night physician report he had difficult for breath. Also on last night, pt has lower degree of fever. pt has elevated troponin at 80, then next troponin at 100 at early this morning, now the new Troponin is over 2400. EKG is done at this morning which reveals no ST variation. but pt complain of nausea at this morning, and difficult to breath on last night. CTA did not reveals PE or infiltrate. Pt likely had acute NSTEM CO on last night. After discussed with Dr. Faby Phillips, publication designer, we start heparin drip for pt now. We start Lipitor, order ECHO. pt already has Coreg. we will continue to control her BP, continue serial Troponin level, continue Tele, vital monitor closely, continue antibiotics for his foot ulcer infection. we will hold pt's transfer to other high level of care. check lipid panel, continue diabetes care and control glucose level. (2) Diabetic foot ulcer 05/27 MRI of left foot reveals a broad region of osteomylitis involving the calcaneus, no drainage fluid collection or abscess. pt want to have surgery intervention. 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 plan: continue antibiotics, followup wound culture. blood culture is negative for bacteremia hold transfer today because of his NSTEM CO dress change as wound RN's instruction 05/26 pt has black color, mal-odorous and mild draining ulcer at left heel location. wound culture indicate both Gram negative and positive bacteria, sensitive is pending. pt state he is sensitive to Vancomycin and refused to have. add Linezolid, pt has normal platelet. continue Cefepime which cover for Pseudo. and Linezolid for gram positive possible MRSA. pt is uncontrolled DM2 blood culture is pending MRI of foot is pending. Xray of foot did not indicate bony infection (3) uncontrolled Diabetes pt has A1C 9.7. discussed with pt for medical compliance importance, specially for foot ulcer control continue SSI, hypoglycemia protocol (4) uncontrolled Hypertension improved. it is controlled now. continue current meds regimen (5) Diabetic neuropathy Conclusion/Plan: stable, pt has no complaint now. (6) GERD (gastroesophageal reflux disease) stable. continue Protonic PO (7)diarrhea pt report diarrhea is better. order Probiotics, pt is on antibiotics to treat his foot infection C.Diff test is negative, add Imodine PRN (2) Diabetic foot ulcer Qualifiers: Diabetic foot ulcer location: heel Diabetes mellitus type: type 2 Laterality: right Non-pressure ulcer stage: with other severity Qualified Code(s): E11.621 - Type 2 diabetes mellitus with foot ulcer; L97.418 - Non- pressure chronic ulcer of right heel and midfoot with other specified severity
[2019-05-27 09:33] LABS: HGB - HEMOGLOBIN 12.1 g/dL (14.0-18.0); MEAN CORPUSCULAR HEMOGLOBIN 28.2 pg (27.0-31.0); MEAN CORPUSCULAR HGB CONC 33.6 g/dL (32.0-36.0); MEAN CORPUSCULAR VOLUME 83.9 fL (80.0-94.0); MEAN PLATELET VOLUME 8.4 fL (7.4-11.4); RED BLOOD COUNT 4.29 10^6/uL (4.70-6.10); RED CELL DISTRIBUTION WIDTH 13.4 % (12.0-15.0)
[2019-05-27] MEDS ORDERED: HEPARIN 25000UNITS/500ML (D5W) 25,000 UNIT/500 ML BAG IV SCH (10:00)
[2019-05-27] MEDS ORDERED: ATORVASTATIN 40 MG TABLET PO SCH (10:00)
[2019-05-27] MEDS ORDERED: ALBUTEROL NEB 2.5 MG/3 ML INH PRN (10:32)
[2019-05-27] MEDS ORDERED: LINEZOLID 600 MG/300 ML 600 MG/300 ML BAG IV SCH (12:00)
[2019-05-27 13:05] LABS: MUDS CUTOFF CONCENTRATIONS CUTOFF CONC BELOW:
[2019-05-27 13:20] LABS: AMPHETAMINE SCREEN,URINE NEGATIVE (NEGATIVE); BENZODIAZEPINES SCREEN, URINE NEGATIVE (NEGATIVE); COCAINE SCREEN URINE NEGATIVE (NEGATIVE); METHADONE SCREEN, URINE NEGATIVE (NEGATIVE); METHAMPHETAMINES SCREEN, URINE NEGATIVE (NEGATIVE); OPIATE SCREEN, URINE NEGATIVE (NEGATIVE); OXYCODONE SCREEN, URINE NEGATIVE (NEGATIVE); PROPOXYPHENE SCREEN, URINE NEGATIVE (NEGATIVE); TRICYCLIC ANTIDEPRESSANT,URINE NEGATIVE (NEGATIVE)
[2019-05-27] MEDS ORDERED: NITROGLYCERIN SL 0.4 MG TABLET SL PRN (15:39)
[2019-05-27] MEDS ORDERED: MORPHINE 2 MG/ML CARPUJECT IVP PRN (15:40)
[2019-05-27] MEDS ORDERED: FERROUS SULFATE 325 MG TABLET PO SCH (17:00)
--- NOTE | 2019-05-27 17:09 | DISCHARGE SUMMARY ---
Discharge Summary Admit Date: 05/25/19 Discharge Date: 05/27/19 Discharging Provider: Dragan Sahni Primary Care Provider: yolande Polk Condition at Discharge: Stable Discharge Disposition: 02 Transfer Acute Care Hosp Discharge Facility [facility]: [facility] - DIAGNOSES Admission Diagnoses: (1) Diabetic foot ulcer (2) Diabetes (3) Hypertension (4) Diabetic neuropathy (5) GERD (gastroesophageal reflux disease) Discharge Diagnoses with Status of Each Condition: (1) NSTEMI (non-ST elevated myocardial infarction) pt's troponin increased to 2400 in the morning. after pt was given Heparin drip, [place] [address]. pt denies chest pain. EKG did not show ST variation. Called [facility], Dr. Portillo agreed pt needed to be transferred to their hospital and accepted pt, and followup by commercial hvac service technician care. pt is hemodynamic stable at the discharge. (2) Diabetic foot ulcer MRI reveals pt has osteomyelitis in his left foot. pt request surgery intervention. pt has hx of BKA and left foot surgery as well. I reported to Dr. Portillo, will followup for ulcer care. pt was given Cefepime and Linezolip in hospital. pt state he is allergy to Vancomycin. Wound culture shows today three bacterial: proteus penneri, MRSA, and beta hemolytic Group G. we will fax the sensitivity study to [facility]. (3) uncontrolled Diabetes glucose is controlled in hospital. pt has A1C 9.7. education to pt the importance to control the glucose level and medical compliance. (4) uncontrolled Hypertension stable and controlled in hospital (5) Diabetic neuropathy stable (6) GERD (gastroesophageal reflux disease) stable (7)diarrhea resolved/stable - HPI History of Present Illness: refer Dr. Bautista's HPI on 05/25/2019 Patient is a 53 y/o morbidly obese male with DM II and significant PVD who presented to the ED with a left heel diabetic ulcer which is black, mal-odorous and draining. He reports that skin around it has been sloughing off for the past week and it has been draining for the past couple of days. He has a right BKA and left amputation of metatarsal and 3 toes. He is also an active smoker. He thinks the ulcer started as a result of rubbing of his heel in his shoe. He finally decided to get it looked at because of the smell and drainage. He denied any fever or chills. He denied chest pain, dyspnea, abd pain, nausea or vomiting. In the ED he had a WBC of 13. He was mildly tachycardic at 102. Initially his SBP was 106 but then it became elevated at 196. As a result of the above he was presented for admission He just moved back to [facility] with his parents from [facility] HOSPITAL COURSE Hospital Course: pt was admitted for left diabetes foot infection. pt was treated with Cefepime and Linezolip. pt had wound culture and blood culture. Wound culture reveals proteus penneri, MRSA, and beta hemolytic Group G. blood culture is negative for bacteremia. In 05/26/2019, pt developed shortness of breath. CTA did not reveal PE or infiltrate. Troponin is slight elevated in initially but significantly increased to 2400. after pt was given heparin drip[place] [address]. For this main reason, pt was transferred to [facility] for high level care. MRI of his left foot reveals osteomyelitis. pt request surgery intervention. the situation was reported to Dr. Portillo in [facility] as well. The detail hospital course is as the below. (1) NSTEMI (non-ST elevated myocardial infarction) pt's troponin increased to 2400 in the morning. after pt was given Heparin drip, [place] [address]. pt denies chest pain. EKG did not show ST variation. Called [facility], Dr. Portillo agreed pt needed to be transferred to their hospital and accepted pt, and followup by commercial hvac service technician care. pt is hemodynamic stable at the discharge. (2) Diabetic foot ulcer MRI reveals pt has osteomyelitis in his left foot. pt request surgery intervention. pt has hx of BKA and left foot surgery as well. I reported to Dr. Portillo, will followup for ulcer care. pt was given Cefepime and Linezolip in hospital. pt state he is allergy to Vancomycin. Wound culture shows today three bacterial: proteus penneri, MRSA, and beta hemolytic Group G. we will fax the sensitivity study to [facility]. (3) uncontrolled Diabetes glucose is controlled in hospital. pt has A1C 9.7. education to pt the importance to control the glucose level and medical compliance. (4) uncontrolled Hypertension stable and controlled in hospital (5) Diabetic neuropathy stable (6) GERD (gastroesophageal reflux disease) stable (7)diarrhea resolved/stable - ALLERGIES Allergies/Adverse Reactions: Allergies Allergy/AdvReac Type Severity Reaction Status Date / Time Penicillins Allergy Itching Verified 05/25/19 16:00 - MEDICATIONS Home Medications: Ambulatory Orders Medication Instructions Recorded Confirmed Amlodipine Besylate 10 mg PO DAILY 11/12/13 05/26/19 Aspirin [Aspir 81] 81 mg ORAL DAILY 09/18/14 05/26/19 hydroCHLOROthiazide [Hydrodiuril] 25 mg PO DAILY 09/18/14 05/26/19 Carvedilol 12.5 mg PO BID 05/26/19 05/26/19 Ferrous Sulfate 325 mg PO TID 05/26/19 05/26/19 Folic Acid 0.4 mg PO DAILY 05/26/19 05/26/19 Hydralazine HCl 100 mg PO TID 05/26/19 05/26/19 Insulin Regular, Human [Humulin R 100 units SUBQ BID 05/26/19 05/26/19 U-500] Levothyroxine Sodium 137 mcg PO DAILY 05/26/19 05/26/19 Loperamide [Imodium] 4 mg PO BID 05/26/19 05/26/19 Losartan [Cozaar] 50 mg PO DAILY 05/26/19 05/26/19 Multivitamin [Theragran] 1 tab PO DAILY 05/26/19 05/26/19 Trazodone HCl 50 mg PO QPM PRN 05/26/19 05/26/19 cloNIDine 0.1 MG PATCH 0.1 mg TOP Q7D 05/26/19 05/26/19 [[id number]] - PHYSICAL EXAM AT DISCHARGE General Appearance: positive: No acute distress, Alert. negative: Lethargic Eyes Bilateral: positive: Normal inspection, PERRL, EOMI, No lid inflammation ENT: positive: ENT inspection nml, Pharynx nml, No signs of dehydration. negative: Purulent nasal drainage Neck: positive: Nml inspection, Thyroid nml, No JVD, Trachea midline. negative: Thyromegaly, Lymphadenopathy (R), Lymphadenopathy (L), Stiff neck, Tracheal deviation Respiratory: positive: Chest non-tender, No respiratory distress, Breath sounds nml. negative: Wheezes, Rales, Rhonchi Cardiovascular: positive: Regular rate & rhythm, No murmur, No gallop. negative: Irregularly irregular, Extrasystoles, Tachycardia, Bradycardia, JVD present, Systolic murmur, Diastolic murmur Peripheral Pulses: positive: 2+ Abdomen: positive: Non-tender, No organomegaly, Nml bowel sounds. negative: Tenderness, Guarding, Rebound Back: positive: Nml inspection. negative: CVA tenderness (R), CVA tenderness (L) Skin: positive: Warm, Dry. negative: Cyanosis, Diaphoresis, Pallor Extremities: negative: Calf tenderness, Martin's sign/cords Neurologic/Psychiatric: positive: Oriented x3, Motor nml, Sensation nml, Mood/affect nml. negative: Weakness, Sensory loss, Facial droop, Slurred/abnml speech, Depressed mood/affect - LABS Result Diagrams: 05/27/19 09:27 05/27/19 02:55 - FOLLOW UP Follow Up: transfer to [facility] for high level of care - TIME SPENT Time Spent in Discharge (Minutes): 50
--- NOTE | 2019-05-27 19:13 | DISCHARGE SUMMARY ---
Discharge Summary Condition at Discharge: Good - ALLERGIES Allergies/Adverse Reactions: Allergies Allergy/AdvReac Type Severity Reaction Status Date / Time Penicillins Allergy Itching Verified 05/25/19 16:00 - MEDICATIONS Home Medications: Ambulatory Orders Medication Instructions Recorded Confirmed Amlodipine Besylate 10 mg PO DAILY 11/12/13 05/26/19 Aspirin [Aspir 81] 81 mg ORAL DAILY 09/18/14 05/26/19 hydroCHLOROthiazide [Hydrodiuril] 25 mg PO DAILY 09/18/14 05/26/19 Carvedilol 12.5 mg PO BID 05/26/19 05/26/19 Ferrous Sulfate 325 mg PO TID 05/26/19 05/26/19 Folic Acid 0.4 mg PO DAILY 05/26/19 05/26/19 Hydralazine HCl 100 mg PO TID 05/26/19 05/26/19 Insulin Regular, Human [Humulin R 100 units SUBQ BID 05/26/19 05/26/19 U-500] Levothyroxine Sodium 137 mcg PO DAILY 05/26/19 05/26/19 Loperamide [Imodium] 4 mg PO BID 05/26/19 05/26/19 Losartan [Cozaar] 50 mg PO DAILY 05/26/19 05/26/19 Multivitamin [Theragran] 1 tab PO DAILY 05/26/19 05/26/19 Trazodone HCl 50 mg PO QPM PRN 05/26/19 05/26/19 cloNIDine 0.1 MG PATCH 0.1 mg TOP Q7D 05/26/19 05/26/19 [[id number]] - LABS Result Diagrams: 05/27/19 09:27 05/27/19 02:55
--- NOTE | 2019-05-27 19:16 | Discharge Plan ---
Discharge Plan Problem Reviewed?: Yes Disposition: 02 Transfer Acute Care Hosp Condition: Stable Diet: Cardiac (ADA) Assistance Devices: Crutches, Other (prosthesis. Up with assistane only) Instruction Topics: Labetalol injection, Hydralazine injection Plan of Treatment: 1. NSTEMI You are being transferred to [facility] in [place] where you will be seen by cardiology and have a cardiac cath with possible stent in the future. You are currently on heparin drip until seen by cardiology You were give aspirin in [facility] here 2. Osteomyelitis: This is from progression of infection of your diabetic foot ulcer You were on vancomycin, cefepime and flagyl in the hospital here You will need orthopedic consult for surgery in the near future 3. Diabetic foot ulcer: You have been on vancomycin, cefepime and flagyl 4.Diabetes You were on sliding scale insulin in the hopital It will likely be continue at [facility] 5. Hypertension Continue you home medication We also had to use clonidine, hydralazine and labetalol in the hospital to get you blood pressure under control 6. Diabetic Neuropathy: Continue taking your lyrica 7. Hypothyroidism Continue taking your synthroid at home dose 8. GERD: You were on protonix Care Goals: 1. NSTEMI You are being transferred to [facility] in [place] where you will be seen by cardiology and have a cardiac cath with possible stent in the future. You are currently on heparin drip until seen by cardiology You were give aspirin in [facility] here 2. Osteomyelitis: This is from progression of infection of your diabetic foot ulcer You were on vancomycin, cefepime and flagyl in the hospital here You will need orthopedic consult for surgery in the near future 3. Diabetic foot ulcer: You have been on vancomycin, cefepime and flagyl 4.Diabetes You were on sliding scale insulin in the hopital It will likely be continue at [facility] 5. Hypertension Continue you home medication We also had to use clonidine, hydralazine and labetalol in the hospital to get you blood pressure under control 6. Diabetic Neuropathy: Continue taking your lyrica 7. Hypothyroidism Continue taking your synthroid at home dose 8. GERD: You were on protonix Assessment: The patient understands the above plan No Smoking: If you smoke, Please STOP! Call for help. Follow-up with: ALBINA VASQUEZ MD [Primary Care Provider] -
[2019-05-27 19:23] VITALS: BP 145/70
[2019-05-28] MEDS ORDERED: FOLIC ACID 1 MG TABLET PO SCH (09:00)
== END 2019-05-27 19:10 | disposition short-term general hospital (02) | DRG 637 ==
LOC: ED 15:49 → MS2 18:56 → OBSVTOIN 05-26 10:01
PROVIDERS: ADMIT Internal Medicine; ATTEND Internal Medicine
DX: E11.69 Type 2 diabetes mellitus with other specified complication (principal); I21.4 Non-ST elevation (NSTEMI) myocardial infarction; M86.9 Osteomyelitis, unspecified; E11.621 Type 2 diabetes mellitus with foot ulcer; L97.429 Non-pressure chronic ulcer of left heel and midfoot with unspecified severity; Z68.42 Body mass index [BMI] 45.0-49.9, adult; E11.65 Type 2 diabetes mellitus with hyperglycemia; E11.42 Type 2 diabetes mellitus with diabetic polyneuropathy; E11.51 Type 2 diabetes mellitus with diabetic peripheral angiopathy without gangrene; E66.01 Morbid (severe) obesity due to excess calories; I10 Essential (primary) hypertension; E03.9 Hypothyroidism, unspecified; F17.210 Nicotine dependence, cigarettes, uncomplicated; K21.9 Gastro-esophageal reflux disease without esophagitis; R19.7 Diarrhea, unspecified; B96.4 Proteus (mirabilis) (morganii) as the cause of diseases classified elsewhere; B95.4 Other streptococcus as the cause of diseases classified elsewhere; B95.62 Methicillin resistant Staphylococcus aureus infection as the cause of diseases classified elsewhere; Z89.511 Acquired absence of right leg below knee; Z89.432 Acquired absence of left foot; Z79.4 Long term (current) use of insulin; Z79.82 Long term (current) use of aspirin; Z79.891 Long term (current) use of opiate analgesic
CPT/HCPCS: 36415; 71045; 71275; 73630; 73720; 80048; 82009; 83036; 83605; 83880; 84443; 84484; 85025; 85027; 85520; 87040; 87070; 87075; 87076; 87077; 87181; 87185; 87205; 87493; 87640; 93005; 93306; 96365; 96366; 96367; 96368; 96375; 96376; 99284; 99285; A9270; A9585; G0378; J1650; J1815; J2020; J3370; Q9967; 80306

== ENCOUNTER 2019-05-27 19:18 | Outpatient (CLI) | payer MEDICARE, MEDICAID | END 2019-05-27 23:59 | disposition short-term general hospital (02) | LOC: EMS 19:18 | PROVIDERS: ATTEND Surgery | DX: I21.4 Non-ST elevation (NSTEMI) myocardial infarction (principal) | CPT/HCPCS: A0425; A0426 ==

== ENCOUNTER 2021-02-01 10:28 | Outpatient (CLI) | payer MEDICARE, MEDICAID ==
[2021-02-01 11:49] LABS: CREATININE,URINE 47.4 mg/dL; PROTEIN/CREATININE RATIO,URINE 6.3 (<=0.2)
== END 2021-02-01 10:29 | disposition home or self-care (01) ==
LOC: LAB 10:28
PROVIDERS: ATTEND Internal Medicine Nephrology
DX: E03.9 Hypothyroidism, unspecified (principal); R80.9 Proteinuria, unspecified
CPT/HCPCS: 36415; 82570; 84156; 84439

== ENCOUNTER 2021-03-27 10:50 | Outpatient (CLI) | payer MEDICARE, MEDICAID ==
[2021-03-27 18:26] LABS: CALCIUM 8.8 mg/dL (8.5-10.3); CREATININE 1.4 mg/dL (0.6-1.2)
[2021-03-27 18:53] LABS: CREATININE,URINE 74.9 mg/dL; PROTEIN/CREATININE RATIO,URINE 7.6 (<=0.2)
== END 2021-03-27 10:51 | disposition home or self-care (01) ==
LOC: LAB.N 10:50
PROVIDERS: ATTEND Internal Medicine Nephrology
DX: N05.9 Unspecified nephritic syndrome with unspecified morphologic changes (principal); E03.9 Hypothyroidism, unspecified; R80.9 Proteinuria, unspecified
CPT/HCPCS: 36415; 80048; 82570; 84156; 84439

== ENCOUNTER 2021-04-03 10:17 | Outpatient (CLI) | payer MEDICARE, MEDICAID ==
[2021-04-03 15:01] LABS: BASOPHILS # (AUTO) 0.1 10^3/uL (0.0-0.1); BASOPHILS % (AUTO) 1.1 %; EOSINOPHILS # (AUTO) 0.2 10^3/uL (0.0-0.7); EOSINOPHILS % (AUTO) 2.7 %; HCT - HEMATOCRIT 45.1 % (42.0-52.0); HGB - HEMOGLOBIN 14.7 g/dL (14.0-18.0); LYMPHOCYTES # (AUTO) 1.2 10^3/uL (1.5-3.5); LYMPHOCYTES % (AUTO) 15.4 %; MEAN CORPUSCULAR HEMOGLOBIN 27.4 pg (27.0-31.0); MEAN CORPUSCULAR HGB CONC 32.6 g/dL (32.0-36.0); MEAN PLATELET VOLUME 9.5 fL (7.4-11.4); MONOCYTES # (AUTO) 0.5 10^3/uL (0.0-1.0); MONOCYTES % (AUTO) 6.1 %; NEUTROPHILS # (AUTO) 5.9 10^3/uL (1.5-6.6); NEUTROPHILS % (AUTO) 74.3 %; PLT - PLATELET COUNT 265 10^3/uL (130-450); RED BLOOD COUNT 5.37 10^6/uL (4.70-6.10); RED CELL DISTRIBUTION WIDTH 14.1 % (12.0-15.0); WHITE BLOOD COUNT 7.9 x10^3/uL (4.8-10.8)
[2021-04-03 15:18] LABS: BUN - BLOOD UREA NITROGEN 21 mg/dL (6-20); CARBON DIOXIDE - CO2 28 mmol/L (21-32); CHLORIDE 100 mmol/L (101-111); CHOL/HDL RATIO 3.6 (<5.0); CHOLESTEROL 154 mg/dL; CREATININE 1.5 mg/dL (0.6-1.2); GFR - MDRD 48 (>89); GLUCOSE 122 mg/dL (70-100); HDL CHOLESTEROL 43 mg/dL; LDL CHOLESTEROL,CALCULATED 84 mg/dL; POTASSIUM 4.1 mmol/L (3.5-5.0); SODIUM 138 mmol/L (135-145); TRIGLYCERIDES 133 mg/dL; VLDL CHOLESTEROL 27 mg/dL
== END 2021-04-03 10:18 | disposition home or self-care (01) ==
LOC: LAB.N 10:17
PROVIDERS: ATTEND Internal Medicine Cardiovascular Disease
DX: I10 Essential (primary) hypertension (principal); E78.5 Hyperlipidemia, unspecified
CPT/HCPCS: 36415; 80048; 80061; 83721; 85025

== ENCOUNTER 2021-05-17 07:48 | Outpatient (CLI) | payer MEDICARE, MEDICAID ==
[2021-05-17 12:34] LABS: BASOPHILS # (AUTO) 0.1 10^3/uL (0.0-0.1); BASOPHILS % (AUTO) 1.1 %; EOSINOPHILS # (AUTO) 0.2 10^3/uL (0.0-0.7); EOSINOPHILS % (AUTO) 2.4 %; HCT - HEMATOCRIT 45.6 % (42.0-52.0); HGB - HEMOGLOBIN 15.2 g/dL (14.0-18.0); LYMPHOCYTES # (AUTO) 1.4 10^3/uL (1.5-3.5); LYMPHOCYTES % (AUTO) 15.4 %; MEAN CORPUSCULAR HEMOGLOBIN 27.3 pg (27.0-31.0); MEAN CORPUSCULAR HGB CONC 33.3 g/dL (32.0-36.0); MEAN PLATELET VOLUME 9.3 fL (7.4-11.4); MONOCYTES # (AUTO) 0.5 10^3/uL (0.0-1.0); MONOCYTES % (AUTO) 5.5 %; NEUTROPHILS # (AUTO) 6.8 10^3/uL (1.5-6.6); NEUTROPHILS % (AUTO) 75.3 %; PLT - PLATELET COUNT 241 10^3/uL (130-450); RED BLOOD COUNT 5.56 10^6/uL (4.70-6.10); WHITE BLOOD COUNT 9.1 x10^3/uL (4.8-10.8)
[2021-05-17 12:45] LABS: CHOL/HDL RATIO 2.9 (<5.0); CHOLESTEROL 116 mg/dL; HDL CHOLESTEROL 40 mg/dL; LDL CHOLESTEROL,CALCULATED 57 mg/dL; LDL/HDL RATIO 1.4 (<3.6); TRIGLYCERIDES 94 mg/dL; VLDL CHOLESTEROL 19 mg/dL
[2021-05-17 13:23] LABS: BUN - BLOOD UREA NITROGEN 14 mg/dL (6-20); CARBON DIOXIDE - CO2 25 mmol/L (21-32); CHLORIDE 101 mmol/L (101-111); CREATININE 1.5 mg/dL (0.6-1.2); GFR - MDRD 48 (>89); GLUCOSE 83 mg/dL (70-100); POTASSIUM 3.7 mmol/L (3.5-5.0); SODIUM 136 mmol/L (135-145)
== END 2021-05-17 07:49 | disposition home or self-care (01) ==
LOC: LAB.N 07:48
PROVIDERS: ATTEND Internal Medicine Cardiovascular Disease
DX: I10 Essential (primary) hypertension (principal); E78.5 Hyperlipidemia, unspecified
CPT/HCPCS: 36415; 80048; 80061; 83721; 85025

== ENCOUNTER 2022-06-04 17:15 | Outpatient (CLI) | payer MEDICARE, MEDICAID | END 2022-06-04 17:16 | disposition short-term general hospital (02) | LOC: EMS 17:15 | DX: I21.19 ST elevation (STEMI) myocardial infarction involving other coronary artery of inferior wall (principal) | CPT/HCPCS: A0425; A0427 ==

== ENCOUNTER 2022-06-25 13:13 | Outpatient (CLI) | payer MEDICARE, MEDICAID | END 2022-06-25 23:59 | disposition critical access hospital (66) | LOC: EMS 13:13 | DX: M79.605 Pain in left leg (principal); Z89.512 Acquired absence of left leg below knee; Z89.511 Acquired absence of right leg below knee | CPT/HCPCS: A0425; A0429 ==

== ENCOUNTER 2022-06-25 13:39 | Emergency (ER) | payer MEDICARE, MEDICAID ==
[2022-06-25 13:49] VITALS: BP 138/62
--- NOTE | 2022-06-25 14:04 | ED Physician Documentation ---
History of Present Illness - Stated complaint Stated Complaint: LT LEG PX - Chief complaint Chief Complaint: Ext Problem - History obtained from History obtained from: Patient - History of Present Illness Pain level max: 0 Pain level now: 0 - Additonal information Additional information: Patient is a 56-year-old male with bilateral BKA's. He states that the right leg feels like the skin is beginning to thin near the end of the amputated bone. He states that this is causing pain and he is having difficulty using his prosthesis. This has been ongoing for the past several weeks. He states currently he is not having pain. He states his prosthesis rubs the back of his leg and is uncomfortable. No fevers. No chills. No redness. No swelling. No drainage. The patient states that he is currently living with his mother and has home caregivers but would like information about assisted living. Review of Systems Constitutional: denies: Fever, Chills Respiratory: denies: Cough GI: denies: Nausea, Vomiting, Diarrhea Skin: denies: Rash Musculoskeletal: denies: Neck pain, Back pain Neurologic: denies: Headache PD PAST MEDICAL HISTORY - Past Medical History Cardiovascular: Hypertension, Peripheral Vascular Disease Respiratory: None Neuro: None Endocrine/Autoimmune: Type 2 diabetes GI: GERD : None HEENT: None Psych: None Musculoskeletal: None Derm: None - Past Surgical History Past Surgical History: Yes HEENT: Other - Present Medications Home Medications: Ambulatory Orders Medication Instructions Recorded Confirmed Amlodipine Besylate 10 mg PO DAILY 11/12/13 05/26/19 Aspirin [Aspir 81] 81 mg ORAL DAILY 09/18/14 05/26/19 hydroCHLOROthiazide [Hydrodiuril] 25 mg PO DAILY 09/18/14 05/26/19 Carvedilol 12.5 mg PO BID 05/26/19 05/26/19 Ferrous Sulfate 325 mg PO TID 05/26/19 05/26/19 Folic Acid 0.4 mg PO DAILY 05/26/19 05/26/19 Hydralazine HCl 100 mg PO TID 05/26/19 05/26/19 Insulin Regular, Human [Humulin R 100 units SUBQ BID 05/26/19 05/26/19 U-500] Levothyroxine Sodium 137 mcg PO DAILY 05/26/19 05/26/19 Loperamide [Imodium] 4 mg PO BID 05/26/19 05/26/19 Losartan [Cozaar] 50 mg PO DAILY 05/26/19 05/26/19 Multivitamin [Theragran] 1 tab PO DAILY 05/26/19 05/26/19 Trazodone HCl 50 mg PO QPM PRN 05/26/19 05/26/19 cloNIDine 0.1 MG PATCH 0.1 mg TOP Q7D 05/26/19 05/26/19 [[id number]] - Allergies Allergies/Adverse Reactions: Allergies Allergy/AdvReac Type Severity Reaction Status Date / Time Penicillins Allergy Itching Verified 06/25/22 13:45 - Social History Does the pt smoke?: Yes Smoking Status: Current every day smoker Does the pt drink ETOH?: No Does the pt have substance abuse?: No - Immunizations Immunizations are current?: Yes - POLST Patient has POLST: No POLST Status: Full Code PD ED PE NORMAL - Vitals Vital signs reviewed: Yes - General General: Alert and oriented X 3, No acute distress - Derm Derm: Warm and dry - Extremities Extremities: Other (R leg - BKA, no redness, no swelling, no drainage. no open sores. FROM of the knee without pain. NVI) - Neuro Neuro: Alert and oriented X 3 - Psych Psych: Normal mood, Normal affect Results - Vitals Vitals: Vital Signs - 24 hr 06/25/22 13:45 Temperature 36.8 C Heart Rate 79 Respiratory 20 Rate Blood Pressure 138/62 H O2 Saturation 100 Oxygen O2 Source Room air PD Medical Decision Making - ED course Complexity details: considered differential, d/w patient, d/w building energy consultant ED course: Patient does not want anything for pain for the leg. He states that the person who usually does his prosthesis is out of town. There is no sign of infection. No emergency medical condition at this time. Social work was consulted. The patient was given information about home health and assisted living facilities. No indication for admission to the hospital at this time. The patient was given a walker as he states he has another walker at home but did not bring it with him. Patient became agitated when he was told that he would not qualify for an ambulance ride home. Does not meet criteria as he can walk with a walker, sit and stand. Patient counseled regarding signs and symptoms for which I believe and urgent re-evaluation would be necessary. Patient with good understanding of and agreement to plan and is comfortable going home at this time This document was made in part using voice recognition software. While efforts are made to proofread this document, sound alike and grammatical errors may occur. Departure - Departure Disposition: 01 Home, Self Care Clinical Impression: S/P BKA (below knee amputation) bilateral Condition: Good Instructions: Amputation Lower Limb Use Crutch Follow-Up: Yanna Park MD [Primary Care Provider] - Within 1 week Comments: Please follow-up with your doctor for further care. Return if you worsen. Your doctor will have to place a referral for home health for you as this cannot be done from the emergency department. You can also speak to Medicaid about an assessment for long-term care. Discharge Date/Time: 06/25/22 16:15
== END 2022-06-25 16:15 | disposition home or self-care (01) ==
LOC: EDUNIT# → ED 13:39
DX: Z89.512 Acquired absence of left leg below knee (principal); Z89.511 Acquired absence of right leg below knee; I10 Essential (primary) hypertension; I73.9 Peripheral vascular disease, unspecified; E11.9 Type 2 diabetes mellitus without complications; F17.200 Nicotine dependence, unspecified, uncomplicated; Z79.82 Long term (current) use of aspirin; Z79.899 Other long term (current) drug therapy; Z79.4 Long term (current) use of insulin
CPT/HCPCS: 99283; 99284

== ENCOUNTER 2022-07-04 22:41 | Outpatient (CLI) | payer MEDICARE, MEDICAID | END 2022-07-04 23:59 | disposition short-term general hospital (02) | LOC: EMS 22:41 | DX: I46.9 Cardiac arrest, cause unspecified (principal); I21.09 ST elevation (STEMI) myocardial infarction involving other coronary artery of anterior wall | CPT/HCPCS: A0425; A0433 ==